=== PATIENT | female | born 1945 | race Caucasian/White ===

== ENCOUNTER 2016-08-08 11:42 | Inpatient (IN) | payer MEDICAID, MEDICARE ==
[~2016-08-08] VITALS: Ht 160 cm; Wt 71.3 kg
[2016-08-08 12:00] VITALS: BP 107/83
[2016-08-08 13:01] LABS: INR 1.1 (0.9-1.1); PROTHROMBIN TIME 11.6 SEC (9.30-11.50)
[2016-08-08 13:03] LABS: ALANINE AMINOTRANSFERASE 50 U/L (3-33); ALBUMIN/GLOBULIN RATIO 1.4 (1.0-2.7); ANION GAP 18 (5-15); ASPARTATE AMINO TRANSFERASE 41 U/L (5-40); CALCIUM 8.9 mg/dL (8.6-10.2); CARBON DIOXIDE 21 mEQ/L (20-30); CHLORIDE 101 mEQ/L (98-107); CREATININE 1.3 mg/dL (0.5-0.9); HEMOLYSIS 13; POTASSIUM 5.1 mEQ/L (3.4-4.9); SODIUM 140 mEQ/L (135-145); TROPONIN I < 0.30 ng/mL (<=0.30)
[2016-08-08] MEDS ORDERED: DIGOXIN0.125 MG/2 ORAL (13:10)
[2016-08-08 13:15] LABS: DIGOXIN < 0.3 ng/mL (0.5-2.0)
[2016-08-08 13:26] LABS: BASOPHILS % (AUTO) 1.5 % (0.0-2.0); EOSINOPHILS % (AUTO) 0.5 % (0.0-3.0); LYMPHOCYTES % (AUTO) 13.7 % (20.0-45.0); MEAN CORPUSCULAR HEMOGLOBIN 29.3 PG (27.0-31.0); MEAN CORPUSCULAR HGB CONC 31.7 G/DL (32.0-36.0); MEAN CORPUSCULAR VOLUME 92 FL (80-99); MEAN PLATELET VOLUME 12.9 FL (6.5-10.1); MONOCYTES % (AUTO) 14.9 % (1.0-10.0); NEUTROPHILS % (AUTO) 69.4 % (45.0-75.0); PLATELET COUNT 131 K/UL (150-450); RED BLOOD COUNT 6.03 M/UL (4.20-5.40); RED CELL DISTRIBUTION WIDTH 15.1 % (11.6-14.8); WHITE BLOOD COUNT 3.8 K/UL (4.8-10.8)
--- NOTE | 2016-08-08 13:32 | Emergency Room Report ---
History of Present Illness General Chief Complaint: Dyspnea/Respdistress Source: Patient Present Illness HPI 71-year-old female presents ED or shortness of breath. Patient denies any shortness of breath. Brother at bedside states that for the last one week patient has been short of breath. Cannot complete her sentences. Shortness of breath after a few steps. Otherlike swelling of swelling around the abdomen. Patient has history of A. fib. States she is on Coumadin and digoxin. Denies any chest pain. Denies any fevers or chills. Denies cough. PMD is Dr. Morse. No other aggravating or relieving factors. Denies any other associated symptom Allergies: Coded Allergies: No Known Allergies (Verified Allergy, Unknown, 03/05/10) Patient History Past Medical History: none Past Surgical History: none Pertinent Family History: none Social History: Denies: alcohol use, drug use, smoking Now: No Immunizations: UTD Reviewed Nursing Documentation: PMH: Agreed, PSxH: Agreed Review of Systems All Other Systems: negative except mentioned in HPI Physical Exam Vital Signs Date Time Temp Pulse Resp B/P Pulse Ox O2 Delivery O2 Flow Rate FiO2 08/08/16 11:50 97.2 116 16 139/98 97 Room Air Sp02 EP Interpretation: reviewed, normal General Appearance: no apparent distress, alert, GCS 15, non-toxic, obese Head: normocephalic Eyes: bilateral eye PERRL, bilateral eye normal inspection ENT: hearing grossly normal, normal pharynx, no angioedema, normal voice Neck: full range of motion, supple/symm/no masses Respiratory: chest non-tender, lungs clear, normal breath sounds, speaking full sentences Cardiovascular #1: regular rate, rhythm, no edema Gastrointestinal: normal bowel sounds, non tender, soft, non-distended, no guarding, no rebound, other - pitting edema lower abdomen Rectal: deferred Genitourinary: no CVA tenderness Musculoskeletal: back normal, swelling - 2+ pitting edema b/l LE Neurologic: alert, oriented x3, responsive, motor strength/tone normal, sensory intact, speech normal Psychiatric: normal inspection Skin: normal inspection Lymphatic: normal inspection Medical Decision Making Diagnostic Impression: Primary Impression: CHF exacerbation Qualified Codes: I50.9 - Heart failure, unspecified Additional Impressions: Dyspnea Qualified Codes: R06.00 - Dyspnea, unspecified ARF (acute renal failure) ER Course Hospital Course 71-year-old female presents ED complaining of shortness of breath, leg swelling Differential diagnoses include: VA/unstable angina, contusion, muscle strain, PTX, rib fracture Clinical course Patient placed on stretcher. on court monitor. After initial history and physical I ordered labs, EKG, chest x-ray labs reviewed- no leukocytosis, hemoglobin/hematocrit stable, creatinine elevated, troponins negative, [place] [id number], Digoxin level subtherapeutic EKG - sinus tachycardia, no acute changes Chest x-ray- intestitial edema, cardiomegaly Digoxin given. Lasix given. case discussed with PMD Dr Morse; he agrees to admission. asked that I admit to Dr Tiwari Case discussed with Dr. Tiwari and he agreed to accept the patient to his service for further care and support I. I feel this is a highly complex case requiring extensive working including EKG/Rhythm strip, Xray/CT/US, Blood/urine lab work, repeat exams while in ED, and administration of strong opiates/narcotics for pain control, admission to hospital or close patient follow up. Diagnosis - CHF exacerbation, acute renal failuere, dyspnea admitted to telemetry in serious condition Labs Test 08/08/16 12:34 08/08/16 13:10 Prothrombin Time 11.6 SEC (9.30-11.50) Prothromb Time International Ratio 1.1 (0.9-1.1) Activated Partial Thromboplast Time 25 SEC (23-33) Sodium Level 140 mEQ/L (135-145) Potassium Level 5.1 mEQ/L (3.4-4.9) Chloride Level 101 mEQ/L (98-107) Carbon Dioxide Level 21 mEQ/L (20-30) Anion Gap 18 (5-15) Blood Urea Nitrogen 29 mg/dL (7-23) Creatinine 1.3 mg/dL (0.5-0.9) Estimat Glomerular Filtration Rate mL/min (>60) Glucose Level 128 mg/dL (74-106) Calcium Level 8.9 mg/dL (8.6-10.2) Total Bilirubin 0.6 mg/dL (0.0-1.2) Aspartate Amino Transf (AST/SGOT) 41 U/L (5-40) Alanine Aminotransferase (ALT/SGPT) 50 U/L (3-33) Alkaline Phosphatase 70 U/L (35-104) Total Creatine Kinase 208 U/L (26-140) Creatine Kinase MB 12.0 ng/mL (< 3.8) Creatine Kinase MB Relative Index 5.7 Troponin I < 0.30 ng/mL (<=0.30) Pro-B-Type Natriuretic Peptide 42634 pg/mL (0-125) Total Protein 6.0 g/dL (6.6-8.7) Albumin 3.5 g/dL (3.5-5.2) Globulin 2.5 g/dL Albumin/Globulin Ratio 1.4 (1.0-2.7) Thyroid Stimulating Hormone (TSH) 6.750 uIU/mL (0.300-4.500) Digoxin Level < 0.3 ng/mL (0.5-2.0) White Blood Count 3.8 K/UL (4.8-10.8) Red Blood Count 6.03 M/UL (4.20-5.40) Hemoglobin 17.6 G/DL (12.0-16.0) Hematocrit 55.7 % (37.0-47.0) Mean Corpuscular Volume 92 FL (80-99) Mean Corpuscular Hemoglobin 29.3 PG (27.0-31.0) Mean Corpuscular Hemoglobin Concent 31.7 G/DL (32.0-36.0) Red Cell Distribution Width 15.1 % (11.6-14.8) Platelet Count 131 K/UL (150-450) Mean Platelet Volume 12.9 FL (6.5-10.1) Neutrophils (%) (Auto) 69.4 % (45.0-75.0) Lymphocytes (%) (Auto) 13.7 % (20.0-45.0) Monocytes (%) (Auto) 14.9 % (1.0-10.0) Eosinophils (%) (Auto) 0.5 % (0.0-3.0) Basophils (%) (Auto) 1.5 % (0.0-2.0) EKG Diagnostic Results Rate: tachycardiac Rhythm: NSR ST Segments: no acute changes ASA given to the pt in ED: No Rhythm Strip Diag. Results EP Interpretation: yes Rhythm: NSR, no PVC's, no ectopy Chest X-Ray Diagnostic Results EP Interpretation: Yes Findings: no pneumothorax, no acute cardiopulmonary disease, other - cardiomegaly. interstitial edema Number of Views: 1 Last Vital Signs Date Time Temp Pulse Resp B/P Pulse Ox O2 Delivery O2 Flow Rate FiO2 08/08/16 12:00 98.3 107 21 107/83 100 Room Air Status: improved Disposition: ADMITTED INPATIENT Condition: Serious Referrals: Marla Morse MD (PCP) RIKY ORTIZ M.D. August 08, 2016 13:32
[2016-08-08] MEDS ORDERED: Digoxin 0.5mg/2ml Inj IVP ONE (13:45)
[2016-08-08 15:11] VITALS: BP 124/86
[2016-08-08] MEDS ORDERED: Miralax 17gm pkt ORAL PRN (15:45)
[2016-08-08] MEDS ORDERED: DuoNeb 0.5-3(2.5)mg/3ml neb HHN PRN (15:45)
[2016-08-08] MEDS ORDERED: Nitroglycerin Subl 0.4mg tab (Bottle Of 25) SL PRN (15:45)
[2016-08-08] MEDS ORDERED: Diltiazem 25mg/5ml IV PRN (15:45)
--- NOTE | 2016-08-08 15:56 | Diagnostic Imaging Report ---
Indication: SOB Technique: One view of the chest Comparison: 06/03/2010 Findings: Body habitus limits evaluation. Patient is rotated to the right. The heart is enlarged. There is a left chest AICD. No definite acute infiltrates, effusions, or congestion. Impression: Limited exam due to body habitus and patient rotation. No definite acute process Cardiomegaly
--- NOTE | 2016-08-08 16:53 | History and Physical ---
History of Present Illness General Date patient seen: August 08, 2016 Reason for Hospitalization: Dyspnea/Respdistress Present Illness HPI 71-year-old female with hx of CAD, ICD, presented to ED with CC of shortness of breath. she annot complete her sentences. She has swelling her legs of swelling. Patient has history of A. fib. and is on Coumadin and digoxin. Denies any chest pain. Denies any fevers or chills. She is admitted for chf and peripheral edema Allergies: Coded Allergies: No Known Allergies (Verified Allergy, Unknown, 03/05/10) Medication History Scheduled Digoxin* (Digoxin*), Unknown Dose ORAL DAILY, (Reported) Patient History Healthcare decision maker Resuscitation status Full Code Advanced Directive on File No Past Medical/Surgical History Past Medical/Surgical History: (1) ICD (implantable cardioverter-defibrillator) in place (2) CAD (coronary artery disease) Review of Systems Respiratory: Reports: shortness of breath Skin: Reports: rash All Other Systems: negative except mentioned in HPI Physical Exam General Appearance: WD/WN Lines, tubes and drains: peripheral HEENT: normocephalic, atraumatic Neck: non-tender, normal alignment Respiratory/Chest: chest wall non-tender, rhonchi - left, rhonchi - right Breasts: no masses Cardiovascular/Chest: normal peripheral pulses, normal rate Abdomen: normal bowel sounds, non tender Extremities: pitting Skin Exam: rash - on feet 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 Last 24 Hour Vital Signs Date Time Temp Pulse Resp B/P Pulse Ox O2 Delivery O2 Flow Rate FiO2 08/08/16 15:11 96.8 107 20 124/86 98 Room Air 108 08/08/16 15:08 107 08/08/16 14:29 105 14 116/79 98 Room Air 08/08/16 14:01 104 08/08/16 12:00 98.3 107 21 107/83 100 Room Air 08/08/16 12:00 107 21 Room Air 08/08/16 11:50 97.2 116 16 139/98 97 Room Air Laboratory Tests Test 08/08/16 12:34 08/08/16 13:10 Prothrombin Time 11.6 SEC (9.30-11.50) H Prothromb Time International Ratio 1.1 (0.9-1.1) Activated Partial Thromboplast Time 25 SEC (23-33) Sodium Level 140 mEQ/L (135-145) Potassium Level 5.1 mEQ/L (3.4-4.9) H Chloride Level 101 mEQ/L (98-107) Carbon Dioxide Level 21 mEQ/L (20-30) Anion Gap 18 (5-15) H Blood Urea Nitrogen 29 mg/dL (7-23) H Creatinine 1.3 mg/dL (0.5-0.9) H Estimat Glomerular Filtration Rate mL/min (>60) Glucose Level 128 mg/dL (74-106) H Calcium Level 8.9 mg/dL (8.6-10.2) Total Bilirubin 0.6 mg/dL (0.0-1.2) Aspartate Amino Transf (AST/SGOT) 41 U/L (5-40) H Alanine Aminotransferase (ALT/SGPT) 50 U/L (3-33) H Alkaline Phosphatase 70 U/L (35-104) Total Creatine Kinase 208 U/L (26-140) H Creatine Kinase MB 12.0 ng/mL (< 3.8) H Creatine Kinase MB Relative Index 5.7 Troponin I < 0.30 ng/mL (<=0.30) Pro-B-Type Natriuretic Peptide 64361 pg/mL (0-125) H Total Protein 6.0 g/dL (6.6-8.7) L Albumin 3.5 g/dL (3.5-5.2) Globulin 2.5 g/dL Albumin/Globulin Ratio 1.4 (1.0-2.7) Thyroid Stimulating Hormone (TSH) 6.750 uIU/mL (0.300-4.500) Digoxin Level < 0.3 ng/mL (0.5-2.0) L White Blood Count 3.8 K/UL (4.8-10.8) L Red Blood Count 6.03 M/UL (4.20-5.40) H Hemoglobin 17.6 G/DL (12.0-16.0) H Hematocrit 55.7 % (37.0-47.0) H Mean Corpuscular Volume 92 FL (80-99) Mean Corpuscular Hemoglobin 29.3 PG (27.0-31.0) Mean Corpuscular Hemoglobin Concent 31.7 G/DL (32.0-36.0) L Red Cell Distribution Width 15.1 % (11.6-14.8) H Platelet Count 131 K/UL (150-450) L Mean Platelet Volume 12.9 FL (6.5-10.1) H Neutrophils (%) (Auto) 69.4 % (45.0-75.0) Lymphocytes (%) (Auto) 13.7 % (20.0-45.0) L Monocytes (%) (Auto) 14.9 % (1.0-10.0) H Eosinophils (%) (Auto) 0.5 % (0.0-3.0) Basophils (%) (Auto) 1.5 % (0.0-2.0) Height (Feet): 5 Height (Inches): 3.00 Weight (Pounds): 200 Medications Current Medications Medications (Trade) Dose Ordered Sig/Lala Route PRN Reason Start Time Stop Time Status Last Admin Dose Admin Acetaminophen (Tylenol) 650 mg Q4H PRN ORAL FEVER 08/08/16 15:45 09/07/16 15:44 Albuterol/ Ipratropium (DuoNeb 0.5-3(2.5)mg/3ml) 3 ml Q4H PRN HHN Shortness of Breath 08/08/16 15:45 08/13/16 15:44 Aspirin (ASA) 162 mg DAILY ORAL 08/09/16 09:00 09/08/16 08:59 Dextrose (Dextrose 50%) STAT PRN IV Hypoglycemia 08/08/16 15:45 09/07/16 15:44 Diltiazem HCl (Cardizem) 10 mg Q1H PRN IV HR > 120 08/08/16 15:45 09/07/16 15:44 Heparin Sodium (Porcine) 5000 units 5,000 units ONCE ONCE IV 08/08/16 16:45 08/08/16 16:46 UNV Heparin Sodium/ Dextrose (Heparin) 500 ml @ 32.658 mls/ hr adjust per protocol IV 08/08/16 16:45 09/07/16 16:44 UNV Nitroglycerin (Ntg) 0.4 mg Q5MIN X 3 DOSES PRN SL Prn Chest Pain 08/08/16 15:45 09/07/16 15:44 Ondansetron HCl (Zofran) 4 mg Q6H PRN IVP Nausea & Vomiting 08/08/16 15:45 09/07/16 15:44 Pantoprazole (Protonix) 40 mg DAILY ORAL 08/09/16 09:00 09/08/16 08:59 Polyethylene Glycol (Miralax) 17 gm DAILYPRN PRN ORAL Constipation 08/08/16 15:45 09/07/16 15:44 Temazepam (Restoril) 15 mg HSPRN PRN ORAL Insomnia 08/08/16 15:45 08/15/16 15:44 Assessment/Plan Problem List: (1) Acute respiratory failure ICD Codes: J96.00 - Acute respiratory failure, unspecified whether with hypoxia or hypercapnia SNOMED: 96680161 (2) Peripheral edema ICD Codes: R60.9 - Edema, unspecified SNOMED: 170029775 (3) Cellulitis ICD Codes: L03.90 - Cellulitis, unspecified SNOMED: 678838038 (4) ICD (implantable cardioverter-defibrillator) in place ICD Codes: Z95.810 - Presence of automatic (implantable) cardiac defibrillator SNOMED: 218240067, 251386285 (5) CAD (coronary artery disease) ICD Codes: I25.10 - Atherosclerotic heart disease of [place] coronary artery without angina pectoris SNOMED: 17147362 Assessment/Plan diuretics echo cardiac evaluation check electrolytes check out ICd device anticoagulation vascular studies of legs SKYLER NOGUERA August 08, 2016 16:53
[2016-08-08 17:17] LABS: TROPONIN I < 0.30 ng/mL (<=0.30)
[2016-08-08] MEDS ORDERED: Heparin 5000 units/ml inj IV ONE (18:00)
[2016-08-08] MEDS ORDERED: Heparin 25,000u/D5W 500ml 500 ML IV SCH (18:01)
[2016-08-08 20:00] VITALS: BP 110/67
--- NOTE | 2016-08-08 20:57 | Cardiology Progress Note ---
Assessment/Plan Assessment/Plan chf acute on chronic systolic dcm hs of icd implantation edema paf polycythemia hx of ivc thrombosis acei and hydralazien intolerances diurtic echo icd interrogation ep evlaution anticoagulation if solely for paf may be ok with noac however not sure if noac indicated with ivc thrombosis duplex of legs arterial and venous [id number] Objective Last 24 Hour Vital Signs Date Time Temp Pulse Resp B/P Pulse Ox O2 Delivery O2 Flow Rate FiO2 08/08/16 20:00 97.4 101 20 110/67 95 Room Air 08/08/16 15:11 96.8 107 20 124/86 98 Room Air 108 08/08/16 15:08 107 08/08/16 14:29 105 14 116/79 98 Room Air 08/08/16 14:01 104 08/08/16 12:00 98.3 107 21 107/83 100 Room Air 08/08/16 12:00 107 21 Room Air 08/08/16 11:50 97.2 116 16 139/98 97 Room Air Laboratory Tests Test 08/08/16 12:34 08/08/16 13:10 08/08/16 16:55 Prothrombin Time 11.6 SEC (9.30-11.50) H Prothromb Time International Ratio 1.1 (0.9-1.1) Activated Partial Thromboplast Time 25 SEC (23-33) 21 SEC (23-33) L Sodium Level 140 mEQ/L (135-145) Potassium Level 5.1 mEQ/L (3.4-4.9) H Chloride Level 101 mEQ/L (98-107) Carbon Dioxide Level 21 mEQ/L (20-30) Anion Gap 18 (5-15) H Blood Urea Nitrogen 29 mg/dL (7-23) H Creatinine 1.3 mg/dL (0.5-0.9) H Estimat Glomerular Filtration Rate mL/min (>60) Glucose Level 128 mg/dL (74-106) H Calcium Level 8.9 mg/dL (8.6-10.2) Total Bilirubin 0.6 mg/dL (0.0-1.2) Aspartate Amino Transf (AST/SGOT) 41 U/L (5-40) H Alanine Aminotransferase (ALT/SGPT) 50 U/L (3-33) H Alkaline Phosphatase 70 U/L (35-104) Total Creatine Kinase 208 U/L (26-140) H Creatine Kinase MB 12.0 ng/mL (< 3.8) H Creatine Kinase MB Relative Index 5.7 Troponin I < 0.30 ng/mL (<=0.30) < 0.30 ng/mL (<=0.30) Pro-B-Type Natriuretic Peptide 09012 pg/mL (0-125) H Total Protein 6.0 g/dL (6.6-8.7) L Albumin 3.5 g/dL (3.5-5.2) Globulin 2.5 g/dL Albumin/Globulin Ratio 1.4 (1.0-2.7) Thyroid Stimulating Hormone (TSH) 6.750 uIU/mL (0.300-4.500) Digoxin Level < 0.3 ng/mL (0.5-2.0) L White Blood Count 3.8 K/UL (4.8-10.8) L Red Blood Count 6.03 M/UL (4.20-5.40) H Hemoglobin 17.6 G/DL (12.0-16.0) H Hematocrit 55.7 % (37.0-47.0) H Mean Corpuscular Volume 92 FL (80-99) Mean Corpuscular Hemoglobin 29.3 PG (27.0-31.0) Mean Corpuscular Hemoglobin Concent 31.7 G/DL (32.0-36.0) L Red Cell Distribution Width 15.1 % (11.6-14.8) H Platelet Count 131 K/UL (150-450) L Mean Platelet Volume 12.9 FL (6.5-10.1) H Neutrophils (%) (Auto) 69.4 % (45.0-75.0) Lymphocytes (%) (Auto) 13.7 % (20.0-45.0) L Monocytes (%) (Auto) 14.9 % (1.0-10.0) H Eosinophils (%) (Auto) 0.5 % (0.0-3.0) Basophils (%) (Auto) 1.5 % (0.0-2.0) SOFYA KEY August 08, 2016 20:57
--- NOTE | 2016-08-08 23:48 | General Progress Note ---
Assessment/Plan Assessment/Plan CHF WITH HIGH BNP iv duuretics A FIB POOR HYGEINE will consider psychiatric consult Subjective Allergies: Coded Allergies: No Known Allergies (Verified Allergy, Unknown, 03/05/10) Subjective patient with lives at home with afib not compliant with meds comes in with CHF Objective Last 24 Hour Vital Signs Date Time Temp Pulse Resp B/P Pulse Ox O2 Delivery O2 Flow Rate FiO2 08/08/16 20:00 97.4 101 20 110/67 95 Room Air 08/08/16 15:11 96.8 107 20 124/86 98 Room Air 108 08/08/16 15:08 107 08/08/16 14:29 105 14 116/79 98 Room Air 08/08/16 14:01 104 08/08/16 12:00 98.3 107 21 107/83 100 Room Air 08/08/16 12:00 107 21 Room Air 08/08/16 11:50 97.2 116 16 139/98 97 Room Air Laboratory Tests 08/08/16 12:34: Prothrombin Time 11.6H, Prothromb Time International Ratio 1.1, Activated Partial Thromboplast Time 25, Sodium Level 140, Potassium Level 5.1H, Chloride Level 101, Carbon Dioxide Level 21, Anion Gap 18H, Blood Urea Nitrogen 29H, Creatinine 1.3H, Estimat Glomerular Filtration Rate , Glucose Level 128H, Calcium Level 8.9, Total Bilirubin 0.6, Aspartate Amino Transf (AST/SGOT) 41H, Alanine Aminotransferase (ALT/SGPT) 50H, Alkaline Phosphatase 70, Total Creatine Kinase 208H, Creatine Kinase MB 12.0H, Creatine Kinase MB Relative Index 5.7, Troponin I < 0.30, Pro-B-Type Natriuretic Peptide 19649E, Total Protein 6.0L, Albumin 3.5, Globulin 2.5, Albumin/Globulin Ratio 1.4, Thyroid Stimulating Hormone (TSH) 6.750H, Digoxin Level < 0.3L 08/08/16 13:10: White Blood Count 3.8L, Red Blood Count 6.03H, Hemoglobin 17.6H, Hematocrit 55.7H, Mean Corpuscular Volume 92, Mean Corpuscular Hemoglobin 29.3, Mean Corpuscular Hemoglobin Concent 31.7L, Red Cell Distribution Width 15.1H, Platelet Count 131L, Mean Platelet Volume 12.9H, Neutrophils (%) (Auto) 69.4, Lymphocytes (%) (Auto) 13.7L, Monocytes (%) (Auto) 14.9H, Eosinophils (%) (Auto ) 0.5, Basophils (%) (Auto) 1.5 08/08/16 16:55: Activated Partial Thromboplast Time 21L, Troponin I < 0.30 Height (Feet): 5 Height (Inches): 3.00 Weight (Pounds): 200 General Appearance: confused, agitated, other Cardiovascular: normal rate, regular rhythm Respiratory/Chest: decreased breath sounds Abdomen: normal bowel sounds Edema: severe edema Marla Morse MD August 08, 2016 23:48
[2016-08-09] VITALS: BP 116/75
[2016-08-09 01:34] LABS: INR 1.2 (0.9-1.1); PROTHROMBIN TIME 12.2 SEC (9.30-11.50)
[2016-08-09 01:51] LABS: PARTIAL THROMBOPLASTIN TIME > 150 SEC (23-33)
[2016-08-09] MEDS ORDERED: Heparin 25,000u/D5W 500ml 500 ML IV SCH ×2 (03:00→21:20)
[2016-08-09 04:00] VITALS: BP 108/62
--- NOTE | 2016-08-09 06:00 | Consultation ---
DATE OF CONSULTATION: 08/08/2016 CARDIOLOGY CONSULTATION REFERRING PHYSICIAN: Hallie Tiwari M.D. REASON FOR REFERRAL: Congestive heart failure. HISTORY OF PRESENT ILLNESS: This is an elderly female, who has been admitted to [facility] because of shortness of breath on walking a few steps. She really does not have any chest pain and uses two pillows. There is no orthopnea and she has some occasional dizziness and lightheadedness. She has mainly palpitations. She is nervous. She came into the hospital because of increasing leg swelling and because of increasing shortness of breath. She is rather a poor historian. Information is obtained from review of the chart at [facility]. She has been evaluated by Dr. Quinonez on prior occasions, and he says from 2010, she has had a cardiomyopathy, ejection fraction 25%, felt to be nonischemic in origin and status post cardiac arrest and intracardiac defibrillator placement by Willard's device, history of thrombophlebitis status post IVC filter placement and chronic pancytopenia, anemia, congestive heart failure, supraventricular tachycardia, and anxiety disorder. ALLERGIES: She says she is not allergic to any medications. SOCIAL HISTORY: She used to smoke, which she quit when she had the pacemaker implanted. No history of drug use. She does have a history of alcohol intake on prior occasions as well. REVIEW OF SYSTEMS: Gastrointestinal: She denies any nausea, vomiting, diarrhea or constipation. No bloody stools or black tarry. Genitourinary: She denies any discomfort on urination. Pulmonary: Denies any coughing or wheezing. Constitutional: She denies any fevers chills or night sweats. PHYSICAL EXAMINATION: GENERAL: The patient is an unkempt elderly female, in no respiratory distress. NECK: Supple. LUNGS: Appear to be rather clear to auscultation. CARDIAC: Regular rate and rhythm. No heaves or thrills noted. ABDOMEN: Abdomen is obese. Positive bowel sounds. Nontender. EXTREMITIES: There is no clubbing or cyanosis. She has a 2 to 3+ pitting edema of lower extremities all the way up to the thighs. NEUROLOGICAL: She is alert and awake. LABORATORY AND DIAGNOSTIC DATA: White count 3.2 with hemoglobin 17.6 up from 10.8 in 2011 and platelet count of 131,000 up from 56,000. Chemistry panel, sodium 140, potassium 5.1, chloride 101, bicarbonate 21, BUN of 29, creatinine 1.3 and glucose of 126. Two sets of cardiac enzymes are negative. ProBNP is 18,000 and CK of 200. TSH of 6.75 and previous B12 level of 284 back in 2010. Digoxin level less than 0.3. Her INR was 1.1 at time of admission and PTT of 25. An EKG shows normal sinus rhythm with leftward axis, with delayed R wave progression, may be related to body habitus and/or displacement. Telemetry showed sinus rhythm. X-rays, chest x-ray shows limited evaluation due to body habitus, the right heart is enlarged and left-sided intracardiac defibrillator is noted. ASSESSMENT AND PLAN: 1. Peripheral edema. 2. Cardiomyopathy. 3. Possible right heart failure. 4. Polycythemia. 5. Paroxysmal episodes of atrial fibrillation. 6. Intracardiac defibrillator placement. Dr. Tiwari, this patient was seen in cardiac consultation. This patient has been previously evaluated and seen by Dr. Quinonez. My hope is that the patient will be seen by him to evaluate intracardiac defibrillator function and see if atrial fibrillation episodes if any. Her prior to admission medications were limited and includes at least list provided is only digoxin. She has been on a combination of Coreg, digoxin, Aldactone and Coumadin and reports she has been off of DASIA inhibitor secondary to prior intolerances, as per Dr. Quinonez's notes previously. Diuretics will be provided intravenously as well with resolution of edema and some of the heart failure symptoms and the patient's blood pressure has been functioning well. The etiology of polycythemia to be determined. Raul Kent M.D. DR: BUTCH JOB#: [id number] CC:
[2016-08-09 08:00] VITALS: BP 112/69
[2016-08-09 08:04] LABS: MEAN CORPUSCULAR HEMOGLOBIN 29.8 PG (27.0-31.0); MEAN CORPUSCULAR HGB CONC 32.1 G/DL (32.0-36.0); MEAN CORPUSCULAR VOLUME 93 FL (80-99); MEAN PLATELET VOLUME 14.4 FL (6.5-10.1); PLATELET COUNT 106 K/UL (150-450); RED BLOOD COUNT 5.14 M/UL (4.20-5.40); RED CELL DISTRIBUTION WIDTH 14.9 % (11.6-14.8); WHITE BLOOD COUNT 3.1 K/UL (4.8-10.8)
[2016-08-09 08:37] LABS: ALANINE AMINOTRANSFERASE 47 U/L (3-33); ALBUMIN/GLOBULIN RATIO 1.4 (1.0-2.7); ANION GAP 16 (5-15); ASPARTATE AMINO TRANSFERASE 40 U/L (5-40); CALCIUM 8.5 mg/dL (8.6-10.2); CARBON DIOXIDE 28 mEQ/L (20-30); CHLORIDE 99 mEQ/L (98-107); CHOLESTEROL 195 mg/dL (< 200); CREATININE 1.2 mg/dL (0.5-0.9); CRP QUANT 0.8 mg/dL (< 0.5); HEMOLYSIS 12; LDL CHOLESTEROL (CALC.) 116 mg/dL (60-99); POTASSIUM 3.9 mEQ/L (3.4-4.9); SODIUM 143 mEQ/L (135-145); TOTAL PROTEIN 5.6 g/dL (6.6-8.7)
[2016-08-09 09:03] LABS: TROPONIN I < 0.30 ng/mL (<=0.30)
[2016-08-09] MEDS: Aspirin Baby 81mg ORAL SCH (09:10)
[2016-08-09 09:12] LABS: ANISOCYTOSIS 1+; BAND NEUTROPHILS % (MANUAL) 0 % (0-8); BASOPHILS % (MANUAL) 0 % (0-2); EOSINOPHILS % (MANUAL) 0 % (0-3); LYMPHOCYTES % (MANUAL) 27 % (20-45); NEUTROPHILS % (MANUAL) 66 % (45-75); PLATELET ESTIMATE DECREASED; PLATELET MORPHOLOGY NORMAL; TOTAL CELLS COUNTED 100
[2016-08-09 12:00] VITALS: BP 111/72
[2016-08-09] MEDS: Heparin 25,000u/D5W 500ml 500 ML IV SCH ×2 (12:28→16:04)
--- NOTE | 2016-08-09 12:48 | Pulmonology Progress Note ---
Assessment/Plan Problems: (1) Acute respiratory failure (2) Peripheral edema (3) Cellulitis (4) ICD (implantable cardioverter-defibrillator) in place (5) CAD (coronary artery disease) Assessment/Plan IV antibiotic diuretics psych and neuro evaluation social service evaluation for home safety evaluation Subjective ROS Limited/Unobtainable: No Interval Events: feeling better Constitutional: Reports: no symptoms HEENT: Repors: no symptoms Allergies: Coded Allergies: No Known Allergies (Verified Allergy, Unknown, 03/05/10) Objective Last 24 Hour Vital Signs Date Time Temp Pulse Resp B/P Pulse Ox O2 Delivery O2 Flow Rate FiO2 08/09/16 12:00 98.5 78 18 111/72 98 Room Air 08/09/16 08:00 98.0 74 18 112/69 94 Room Air 08/09/16 04:00 86 08/09/16 04:00 97.8 79 22 108/62 95 Room Air 08/09/16 00:00 97.6 101 20 116/75 96 Room Air 08/09/16 00:00 98 08/08/16 20:00 97.4 101 20 110/67 95 Room Air 08/08/16 20:00 98 08/08/16 15:11 96.8 107 20 124/86 98 Room Air 108 08/08/16 15:08 107 08/08/16 14:29 105 14 116/79 98 Room Air 08/08/16 14:01 104 Intake and Output 08/08/16 08/09/16 19:00 07:00 Intake Total 250 ml Balance 250 ml Intake Oral 250 ml # Voids 1 1 General Appearance: WD/WN HEENT: normocephalic, atraumatic Respiratory/Chest: chest wall non-tender, lungs clear Breasts: no masses Cardiovascular: normal peripheral pulses Abdomen: normal bowel sounds Genitourinary: normal external genitalia Skin: no rash, rash Neurologic/Psychiatric: system operator II-XII grossly normal Laboratory Tests 08/08/16 13:10: White Blood Count 3.8L, Red Blood Count 6.03H, Hemoglobin 17.6H, Hematocrit 55.7H, Mean Corpuscular Volume 92, Mean Corpuscular Hemoglobin 29.3, Mean Corpuscular Hemoglobin Concent 31.7L, Red Cell Distribution Width 15.1H, Platelet Count 131L, Mean Platelet Volume 12.9H, Neutrophils (%) (Auto) 69.4, Lymphocytes (%) (Auto) 13.7L, Monocytes (%) (Auto) 14.9H, Eosinophils (%) (Auto ) 0.5, Basophils (%) (Auto) 1.5 08/08/16 16:55: Activated Partial Thromboplast Time 21L, Troponin I < 0.30 08/09/16 00:35: Activated Partial Thromboplast Time > 150*H, Prothrombin Time 12.2H, Prothromb Time International Ratio 1.2H 08/09/16 07:25: White Blood Count 3.1L, Red Blood Count 5.14, Hemoglobin 15.3, Hematocrit 47.7H , Mean Corpuscular Volume 93, Mean Corpuscular Hemoglobin 29.8, Mean Corpuscular Hemoglobin Concent 32.1, Red Cell Distribution Width 14.9H, Platelet Count 106L, Mean Platelet Volume 14.4H, Neutrophils (%) (Auto) , Lymphocytes (%) (Auto) , Monocytes (%) (Auto) , Eosinophils (%) (Auto) , Basophils (%) (Auto) , Troponin I < 0.30, Differential Total Cells Counted 100, Neutrophils % (Manual) 66, Lymphocytes % (Manual) 27, Monocytes % (Manual) 7, Eosinophils % (Manual) 0, Basophils % (Manual) 0, Band Neutrophils 0, Platelet Estimate DecreasedL, Platelet Morphology Normal, Anisocytosis 1+, Sodium Level 143, Potassium Level 3.9, Chloride Level 99, Carbon Dioxide Level 28, Anion Gap 16H, Blood Urea Nitrogen 28H, Creatinine 1.2H, Estimat Glomerular Filtration Rate , Glucose Level 68L, Calcium Level 8.5L, Total Bilirubin 0.6, Aspartate Amino Transf (AST/SGOT) 40, Alanine Aminotransferase (ALT/SGPT) 47H, Alkaline Phosphatase 68, C-Reactive Protein, Quantitative 0.8H, Total Protein 5.6L, Albumin 3.3L, Globulin 2.3, Albumin/Globulin Ratio 1.4, Triglycerides Level 77, Cholesterol Level 195, LDL Cholesterol 116H, HDL Cholesterol 64H, Cholesterol/ HDL Ratio 3.0L 08/09/16 09:40: Activated Partial Thromboplast Time 133H Current Medications Medications (Trade) Dose Ordered Sig/Lala Route PRN Reason Start Time Stop Time Status Last Admin Dose Admin Acetaminophen (Tylenol) 650 mg Q4H PRN ORAL FEVER 08/08/16 15:45 09/07/16 15:44 Albuterol/ Ipratropium (DuoNeb 0.5-3(2.5)mg/3ml) 3 ml Q4H PRN HHN Shortness of Breath 08/08/16 15:45 08/13/16 15:44 Aspirin (ASA) 162 mg DAILY ORAL 08/09/16 09:00 09/08/16 08:59 08/09/16 09:10 Dextrose (Dextrose 50%) STAT PRN IV Hypoglycemia 08/08/16 15:45 09/07/16 15:44 Diltiazem HCl (Cardizem) 10 mg Q1H PRN IV HR > 120 08/08/16 15:45 09/07/16 15:44 Furosemide 20 mg 20 mg EVERY 12 HOURS IV 08/08/16 21:30 09/07/16 21:29 08/09/16 09:10 Heparin Sodium/ Dextrose (Heparin) 500 ml @ 17.365 mls/ hr adjust per protocol IV 08/09/16 12:00 09/08/16 11:59 08/09/16 12:28 Nitroglycerin (Ntg) 0.4 mg Q5MIN X 3 DOSES PRN SL Prn Chest Pain 08/08/16 15:45 09/07/16 15:44 Ondansetron HCl (Zofran) 4 mg Q6H PRN IVP Nausea & Vomiting 08/08/16 15:45 09/07/16 15:44 Pantoprazole (Protonix) 40 mg DAILY ORAL 08/09/16 09:00 09/08/16 08:59 08/09/16 09:10 Polyethylene Glycol (Miralax) 17 gm DAILYPRN PRN ORAL Constipation 08/08/16 15:45 09/07/16 15:44 Temazepam (Restoril) 15 mg HSPRN PRN ORAL Insomnia 08/08/16 15:45 08/15/16 15:44 SKYLER NOGUERA Aug 09, 2016 12:48
--- NOTE | 2016-08-09 14:27 | Neurology Progress Note ---
Interim History Interim History ROS Limited/Unobtainable: No Objective Physical Exam Last Vital Signs Date Time Temp Pulse Resp B/P Pulse Ox O2 Delivery O2 Flow Rate FiO2 08/09/16 12:00 98.5 78 18 111/72 98 Room Air Laboratory Tests Test 08/08/16 16:55 08/09/16 00:35 08/09/16 07:25 08/09/16 09:40 Activated Partial Thromboplast Time 21 SEC (23-33) L > 150 SEC (23-33) *H 133 SEC (23-33) H Troponin I < 0.30 ng/mL (<=0.30) < 0.30 ng/mL (<=0.30) Prothrombin Time 12.2 SEC (9.30-11.50) H Prothromb Time International Ratio 1.2 (0.9-1.1) H White Blood Count 3.1 K/UL (4.8-10.8) L Red Blood Count 5.14 M/UL (4.20-5.40) Hemoglobin 15.3 G/DL (12.0-16.0) Hematocrit 47.7 % (37.0-47.0) H Mean Corpuscular Volume 93 FL (80-99) Mean Corpuscular Hemoglobin 29.8 PG (27.0-31.0) Mean Corpuscular Hemoglobin Concent 32.1 G/DL (32.0-36.0) Red Cell Distribution Width 14.9 % (11.6-14.8) H Platelet Count 106 K/UL (150-450) L Mean Platelet Volume 14.4 FL (6.5-10.1) H Neutrophils (%) (Auto) % (45.0-75.0) Lymphocytes (%) (Auto) % (20.0-45.0) Monocytes (%) (Auto) % (1.0-10.0) Eosinophils (%) (Auto) % (0.0-3.0) Basophils (%) (Auto) % (0.0-2.0) Differential Total Cells Counted 100 Neutrophils % (Manual) 66 % (45-75) Lymphocytes % (Manual) 27 % (20-45) Monocytes % (Manual) 7 % (1-10) Eosinophils % (Manual) 0 % (0-3) Basophils % (Manual) 0 % (0-2) Band Neutrophils 0 % (0-8) Platelet Estimate Decreased L Platelet Morphology Normal Anisocytosis 1+ Sodium Level 143 mEQ/L (135-145) Potassium Level 3.9 mEQ/L (3.4-4.9) Chloride Level 99 mEQ/L (98-107) Carbon Dioxide Level 28 mEQ/L (20-30) Anion Gap 16 (5-15) H Blood Urea Nitrogen 28 mg/dL (7-23) H Creatinine 1.2 mg/dL (0.5-0.9) H Estimat Glomerular Filtration Rate mL/min (>60) Glucose Level 68 mg/dL (74-106) L Calcium Level 8.5 mg/dL (8.6-10.2) L Total Bilirubin 0.6 mg/dL (0.0-1.2) Aspartate Amino Transf (AST/SGOT) 40 U/L (5-40) Alanine Aminotransferase (ALT/SGPT) 47 U/L (3-33) H Alkaline Phosphatase 68 U/L (35-104) C-Reactive Protein, Quantitative 0.8 mg/dL (< 0.5) H Total Protein 5.6 g/dL (6.6-8.7) L Albumin 3.3 g/dL (3.5-5.2) L Globulin 2.3 g/dL Albumin/Globulin Ratio 1.4 (1.0-2.7) Triglycerides Level 77 mg/dL (< 150) Cholesterol Level 195 mg/dL (< 200) LDL Cholesterol 116 mg/dL (60-99) H HDL Cholesterol 64 mg/dL (> 60) H Cholesterol/HDL Ratio 3.0 (3.3-4.4) L Impression/Recommendations Problems: (1) Mild cognitive impairment with memory loss (2) r/o bypolar disorder (3) Morbid obesity (4) Cellulitis (5) Peripheral edema (6) ICD (implantable cardioverter-defibrillator) in place (7) CHF exacerbation Status: unchanged Recommendations #[id number] labs ct brain psych eval placement. GREAT CHEUNG Aug 09, 2016 14:27
[2016-08-09 16:00] VITALS: BP 125/75
[2016-08-09] MEDS: ceFAZolin sod 0.5 GM in D5W 55 ML IV SCH ×2 (16:05→21:15)
--- NOTE | 2016-08-09 16:09 | Cardiac Electrophysiology PN ---
Subjective Subjective [id number] My office patient for many years. Had appointment just last week. Will reinterrogated the [place] ICD and check for atrial fib burden.Increase Lasix to 40 iv bid and anticoagulate Objective Last 24 Hour Vital Signs Date Time Temp Pulse Resp B/P Pulse Ox O2 Delivery O2 Flow Rate FiO2 08/09/16 12:00 98.5 78 18 111/72 98 Room Air 08/09/16 12:00 93 08/09/16 08:00 98.0 74 18 112/69 94 Room Air 08/09/16 08:00 107 08/09/16 04:00 86 08/09/16 04:00 97.8 79 22 108/62 95 Room Air 08/09/16 00:00 97.6 101 20 116/75 96 Room Air 08/09/16 00:00 98 08/08/16 20:00 97.4 101 20 110/67 95 Room Air 08/08/16 20:00 98 Intake and Output 08/08/16 08/09/16 19:00 07:00 Intake Total 250 ml Balance 250 ml Intake Oral 250 ml # Voids 1 1 Laboratory Tests Test 08/08/16 16:55 08/09/16 00:35 08/09/16 07:25 08/09/16 09:40 Activated Partial Thromboplast Time 21 SEC (23-33) L > 150 SEC (23-33) *H 133 SEC (23-33) H Troponin I < 0.30 ng/mL (<=0.30) < 0.30 ng/mL (<=0.30) Prothrombin Time 12.2 SEC (9.30-11.50) H Prothromb Time International Ratio 1.2 (0.9-1.1) H White Blood Count 3.1 K/UL (4.8-10.8) L Red Blood Count 5.14 M/UL (4.20-5.40) Hemoglobin 15.3 G/DL (12.0-16.0) Hematocrit 47.7 % (37.0-47.0) H Mean Corpuscular Volume 93 FL (80-99) Mean Corpuscular Hemoglobin 29.8 PG (27.0-31.0) Mean Corpuscular Hemoglobin Concent 32.1 G/DL (32.0-36.0) Red Cell Distribution Width 14.9 % (11.6-14.8) H Platelet Count 106 K/UL (150-450) L Mean Platelet Volume 14.4 FL (6.5-10.1) H Neutrophils (%) (Auto) % (45.0-75.0) Lymphocytes (%) (Auto) % (20.0-45.0) Monocytes (%) (Auto) % (1.0-10.0) Eosinophils (%) (Auto) % (0.0-3.0) Basophils (%) (Auto) % (0.0-2.0) Differential Total Cells Counted 100 Neutrophils % (Manual) 66 % (45-75) Lymphocytes % (Manual) 27 % (20-45) Monocytes % (Manual) 7 % (1-10) Eosinophils % (Manual) 0 % (0-3) Basophils % (Manual) 0 % (0-2) Band Neutrophils 0 % (0-8) Platelet Estimate Decreased L Platelet Morphology Normal Anisocytosis 1+ Sodium Level 143 mEQ/L (135-145) Potassium Level 3.9 mEQ/L (3.4-4.9) Chloride Level 99 mEQ/L (98-107) Carbon Dioxide Level 28 mEQ/L (20-30) Anion Gap 16 (5-15) H Blood Urea Nitrogen 28 mg/dL (7-23) H Creatinine 1.2 mg/dL (0.5-0.9) H Estimat Glomerular Filtration Rate mL/min (>60) Glucose Level 68 mg/dL (74-106) L Calcium Level 8.5 mg/dL (8.6-10.2) L Total Bilirubin 0.6 mg/dL (0.0-1.2) Aspartate Amino Transf (AST/SGOT) 40 U/L (5-40) Alanine Aminotransferase (ALT/SGPT) 47 U/L (3-33) H Alkaline Phosphatase 68 U/L (35-104) C-Reactive Protein, Quantitative 0.8 mg/dL (< 0.5) H Total Protein 5.6 g/dL (6.6-8.7) L Albumin 3.3 g/dL (3.5-5.2) L Globulin 2.3 g/dL Albumin/Globulin Ratio 1.4 (1.0-2.7) Triglycerides Level 77 mg/dL (< 150) Cholesterol Level 195 mg/dL (< 200) LDL Cholesterol 116 mg/dL (60-99) H HDL Cholesterol 64 mg/dL (> 60) H Cholesterol/HDL Ratio 3.0 (3.3-4.4) HANSEL BERMAN Aug 09, 2016 16:09
[2016-08-09] MEDS ORDERED: Warfarin Sodium 5mg ORAL ONE (18:00)
--- NOTE | 2016-08-09 18:10 | Consultation ---
Consult Note Consult Note PODIATRY CONSULTATION CONSULTING PHYSICIAN: Emmett Blue DPM COVERING FOR: Jarocho Knight DPM DATE: REASON FOR CONSULT: Bilateral lower extremity cellulitis HISTORY OF PRESENT ILLNESS: Patient states approximately one week history of increasing edema and redness of bilateral lower extremities. Patient states that the foot has also been itching. No pain, nausea, vomiting, fevers, or chills reported. Patient was admitted due to difficulty breathing. ALLERGIES: No known CURRENT ANTIBIOTICS: Cefepime PAST MEDICAL HISTORY: CHF, CAD SOCIAL HISTORY: Patient does not currently smoke but has a history of smoking. Drinks occasionally. No illicit drug use. Patient lives with her brother SURGICAL HISTORY: Implantable cardioverter defibrillator FAMILY HISTORY: No pertinent findings Last 24 Hour Vital Signs Date Time Temp Pulse Resp B/P Pulse Ox O2 Delivery O2 Flow Rate FiO2 08/09/16 16:00 98.0 68 18 125/75 97 Room Air 08/09/16 12:00 98.5 78 18 111/72 98 Room Air 08/09/16 12:00 93 08/09/16 08:00 98.0 74 18 112/69 94 Room Air 08/09/16 08:00 107 08/09/16 04:00 86 08/09/16 04:00 97.8 79 22 108/62 95 Room Air 08/09/16 00:00 97.6 101 20 116/75 96 Room Air 08/09/16 00:00 98 08/08/16 20:00 97.4 101 20 110/67 95 Room Air 08/08/16 20:00 98 Laboratory Tests Test 08/09/16 00:35 08/09/16 07:25 08/09/16 09:40 Prothrombin Time 12.2 SEC (9.30-11.50) H Prothromb Time International Ratio 1.2 (0.9-1.1) H Activated Partial Thromboplast Time > 150 SEC (23-33) *H 133 SEC (23-33) H White Blood Count 3.1 K/UL (4.8-10.8) L Red Blood Count 5.14 M/UL (4.20-5.40) Hemoglobin 15.3 G/DL (12.0-16.0) Hematocrit 47.7 % (37.0-47.0) H Mean Corpuscular Volume 93 FL (80-99) Mean Corpuscular Hemoglobin 29.8 PG (27.0-31.0) Mean Corpuscular Hemoglobin Concent 32.1 G/DL (32.0-36.0) Red Cell Distribution Width 14.9 % (11.6-14.8) H Platelet Count 106 K/UL (150-450) L Mean Platelet Volume 14.4 FL (6.5-10.1) H Neutrophils (%) (Auto) % (45.0-75.0) Lymphocytes (%) (Auto) % (20.0-45.0) Monocytes (%) (Auto) % (1.0-10.0) Eosinophils (%) (Auto) % (0.0-3.0) Basophils (%) (Auto) % (0.0-2.0) Differential Total Cells Counted 100 Neutrophils % (Manual) 66 % (45-75) Lymphocytes % (Manual) 27 % (20-45) Monocytes % (Manual) 7 % (1-10) Eosinophils % (Manual) 0 % (0-3) Basophils % (Manual) 0 % (0-2) Band Neutrophils 0 % (0-8) Platelet Estimate Decreased L Platelet Morphology Normal Anisocytosis 1+ Sodium Level 143 mEQ/L (135-145) Potassium Level 3.9 mEQ/L (3.4-4.9) Chloride Level 99 mEQ/L (98-107) Carbon Dioxide Level 28 mEQ/L (20-30) Anion Gap 16 (5-15) H Blood Urea Nitrogen 28 mg/dL (7-23) H Creatinine 1.2 mg/dL (0.5-0.9) H Estimat Glomerular Filtration Rate mL/min (>60) Glucose Level 68 mg/dL (74-106) L Calcium Level 8.5 mg/dL (8.6-10.2) L Total Bilirubin 0.6 mg/dL (0.0-1.2) Aspartate Amino Transf (AST/SGOT) 40 U/L (5-40) Alanine Aminotransferase (ALT/SGPT) 47 U/L (3-33) H Alkaline Phosphatase 68 U/L (35-104) Troponin I < 0.30 ng/mL (<=0.30) C-Reactive Protein, Quantitative 0.8 mg/dL (< 0.5) H Total Protein 5.6 g/dL (6.6-8.7) L Albumin 3.3 g/dL (3.5-5.2) L Globulin 2.3 g/dL Albumin/Globulin Ratio 1.4 (1.0-2.7) Triglycerides Level 77 mg/dL (< 150) Cholesterol Level 195 mg/dL (< 200) LDL Cholesterol 116 mg/dL (60-99) H HDL Cholesterol 64 mg/dL (> 60) H Cholesterol/HDL Ratio 3.0 (3.3-4.4) L PHYSICAL EXAM: DERM: Blisters at bilateral foot at the dorsal 1st proximal interdigital space and the anterior ankle. Surrounding erythema and edema present. Mild pain with palpation surrounding the blisters. Patient also has a small blister at the dorsal left foot. Hyperkeratosis noted at the right plantar 4th metatarsal head. Thick, discolored, and elongated toenails x 10. Poor pedal hygiene bilaterally NEURO: Sensation in tact to light touch VASC: Bilateral foot and lower leg with pitting edema MSK: Muscle strength appropriate for age . Assessment/Plan Assessment: - Bilateral foot blisters - Bilateral lower extremity cellulitis - Bilateral lower extremity edema - Elongated mycotic toenails - Callus sub right foot 4th metatarsal head - Poor pedal hygiene Plan: - The patient was consented and a bedside I&D was performed and the blisters were lanced. The contents appeared serous and were sent for aerobic and anaerobic cultures - The blisters were painted with betadine. Continue to paint the areas with betadine daily and keep open to air. However, if drainage increased will start daily dressing changes - Vascular studies, venous and arterial doppler, of bilateral lower extremities are complete. Follow up results - Will debride toenails and callus - Continue cephalexin for now - Discussed with patient that the symmetrical presentation of the blisters is likely related to inappropriate shoe gear and that she should discontinue using shoes that resulting in friction in the areas of blister formation Emmett Blue DPM Aug 09, 2016 18:10
--- NOTE | 2016-08-09 18:30 | Consultation ---
DATE OF CONSULTATION: 08/09/2016 NEUROLOGICAL CONSULTATION CONSULTING PHYSICIAN: Austin Chapa M.D. ATTENDING PHYSICIAN: Marla Morse M.D. REQUESTING PHYSICIAN: Hallie Tiwari M.D. HISTORY OF PRESENT ILLNESS: This is a 71-year-old, who was brought to this hospital when her family noted that she developed the shortness of breath on exertion, actually with walking only few steps. The patient presented with elevated mood and insisted that she has no discomfort or medical issues. On admission, she was acknowledging presence of swelling in her both lower extremities. The patient is recently diagnosed with DVT and placed on Coumadin. She had IVC filter placed. Following current admission, vital signs remained stable, although heart rate was 116. Her imaging studies, chest x-ray, cardiomegaly and left chest AICD. Lab work with CBC presenting with low WBCs 3.8, elevated RBC 6.03, hemoglobin 17, hematocrit 55.7, and platelets 131,000. Coagulation panel, PT of 11.6 and INR 1.1. The patient was started on heparin drip and PTT elevated at 150 and INR 1.2. Chemistry panel on admission included BUN of 29, creatinine 1.3, potassium 5.1. Elevated AST and ALT. CPK 208 with a CK-MB of 12.0 and BNP of 18,803. Toxicology panel unremarkable. She has elevated TSH 6.750 and LDL of 116. Since admission till present, there were no paroxysmal events. She remained essentially stable. PAST MEDICAL HISTORY: The patient has a history of morbid obesity, history of a pacemaker in place, thrombophlebitis, status post IVC filter placement, history of chronic anemia, pancytopenia, history of congestive heart failure, episodes of supraventricular tachycardia, cardiomyopathy with previous ejection fraction 25%. The patient has a history of emotional lability and anxiety disorder. MEDICATIONS: Her treatment prior to admission included digoxin. Currently, she is on IV heparin drip, aspirin, Cardizem, Lasix, albuterol, nitroglycerin, Zofran, Protonix, MiraLAX, and temazepam. ALLERGIES: None reported. SOCIAL HISTORY: Lives at home with her brother. Previously, heavy smoker and has a history of alcohol abuse. REVIEW OF SYSTEMS: She denies having headache or dizziness. Denies chest pain. No shortness of breath. No abdominal pain or discomfort. No urine or bowel incontinence, but she has a swelling to her lower extremities, and limited ambulation. Admits occasional depression. PHYSICAL EXAMINATION: GENERAL: This is a well-developed, but morbidly obese, deconditioned appearing female, lying on the right side watching TV. The patient was insisting on assuming only right body position stating that this is more comfortable. VITAL SIGNS: Stable. Blood pressure 111/72, heart rate is 78, and temperature 98.1 degrees. HEENT: Head, normocephalic. No evidence of injuries. Eyes, ears, and throat are clear. NECK: Supple. No meningeal signs. MUSCULOSKELETAL EXAMINATION: Remarkable for significant 3+ swelling and redness of both lower extremities below knees. Peripheral pulses of both upper extremities is normal. Unable to palpate both dorsal pedis pulses. The pacemaker in place in chest. MENTAL STATUS: She is alert and oriented to her name, age, place, year, and month. She was able to provide with history although she is quite forgetful, but speech is fluent and she is talkative. At times, appears to be in rapid responses with frequent jokes, but she is emotionally labile, and mood elevated. She has a poor insight, able to follow commands, she was able to recall the current president of [facility], but unable to recall previous two, going back to [place]. She was unable to recall any of 3 words in 3 minutes. There was no perceptional thought abnormalities detected. CRANIAL NERVE II: Pupils both responding to light and accommodation. Extraocular movement intact. No nystagmus. CRANIAL NERVE V: Normal corneal responses. CRANIAL NERVE VII: No facial asymmetry. CRANIAL NERVE VIII: Grossly normal hearing. CRANIAL NERVES IX THROUGH XII: Tongue is in midline. The patient has a poor dentition. MOTOR EXAMINATION: Able to lift arms against the gravity. Strength 5/5. Able to lift both lower extremities against the gravity, but briefly. Deep tendon reflexes depressed bilaterally biceps, triceps, brachioradialis, knee and ankle jerks. Plantar response is mute. SENSORY EXAMINATION: Withdrawing to pin stimulation in both upper and lower extremities. CRANIAL NERVE VIII: Unable to test distal aspect of both lower extremities due to significant swelling. Gait not tested. IMPRESSION: 1. This is a 71-year-old female with multiple stroke risk factors, presenting with a mild cognitive impairment and manic affect. Rule out bipolar disorder, rule out vascular dementia. 2. Morbid obesity. 3. Renal insufficiency. 4. Congestive heart failure. 5. Cellulitis of both lower extremities. 6. Internal cardioverter-defibrillator in place. RECOMMENDATION: 1. The patient to recheck thyroid function, B12, and folate. Check vitamin D and vitamin C levels. Recheck CEA and glycated hemoglobin. 2. Baseline CT of the brain. 3. Psychiatry evaluation regarding abnormal affect. 4. Continue with IV fluids and antibiotics to cover underlying infection. Discussed the patient's status with medical staff. Austin Chapa M.D. DR: MARTHA JOB#: [id number] CC:
--- NOTE | 2016-08-09 19:05 | General Progress Note ---
Assessment/Plan Assessment/Plan CHF WITH HIGH BNP iv duuretics A FIB POOR HYGEINE will consider psychiatric consult bipolar vs paranoid schizophrenia iv abtx ck ua cs Subjective Allergies: Coded Allergies: No Known Allergies (Verified Allergy, Unknown, 03/05/10) Subjective 08/08/2016 patient with lives at home with afib not compliant with meds comes in with CHF 08/09/2016 she is more alert and follows commands .responds more appropiately Objective Last 24 Hour Vital Signs Date Time Temp Pulse Resp B/P Pulse Ox O2 Delivery O2 Flow Rate FiO2 08/09/16 16:00 99 08/09/16 16:00 98.0 68 18 125/75 97 Room Air 08/09/16 12:00 98.5 78 18 111/72 98 Room Air 08/09/16 12:00 93 08/09/16 08:00 98.0 74 18 112/69 94 Room Air 08/09/16 08:00 107 08/09/16 04:00 86 08/09/16 04:00 97.8 79 22 108/62 95 Room Air 08/09/16 00:00 97.6 101 20 116/75 96 Room Air 08/09/16 00:00 98 08/08/16 20:00 97.4 101 20 110/67 95 Room Air 08/08/16 20:00 98 Intake and Output 08/08/16 08/09/16 19:00 07:00 Intake Total 250 ml Balance 250 ml Intake Oral 250 ml # Voids 1 1 Laboratory Tests 08/09/16 00:35: Prothrombin Time 12.2H, Prothromb Time International Ratio 1.2H, Activated Partial Thromboplast Time > 150*H 08/09/16 07:25: White Blood Count 3.1L, Red Blood Count 5.14, Hemoglobin 15.3, Hematocrit 47.7H , Mean Corpuscular Volume 93, Mean Corpuscular Hemoglobin 29.8, Mean Corpuscular Hemoglobin Concent 32.1, Red Cell Distribution Width 14.9H, Platelet Count 106L, Mean Platelet Volume 14.4H, Neutrophils (%) (Auto) , Lymphocytes (%) (Auto) , Monocytes (%) (Auto) , Eosinophils (%) (Auto) , Basophils (%) (Auto) , Differential Total Cells Counted 100, Neutrophils % ( Manual) 66, Lymphocytes % (Manual) 27, Monocytes % (Manual) 7, Eosinophils % ( Manual) 0, Basophils % (Manual) 0, Band Neutrophils 0, Platelet Estimate DecreasedL, Platelet Morphology Normal, Anisocytosis 1+, Sodium Level 143, Potassium Level 3.9, Chloride Level 99, Carbon Dioxide Level 28, Anion Gap 16H, Blood Urea Nitrogen 28H, Creatinine 1.2H, Estimat Glomerular Filtration Rate , Glucose Level 68L, Calcium Level 8.5L, Total Bilirubin 0.6, Aspartate Amino Transf (AST/SGOT) 40, Alanine Aminotransferase (ALT/SGPT) 47H, Alkaline Phosphatase 68, Troponin I < 0.30, C-Reactive Protein, Quantitative 0.8H, Total Protein 5.6L, Albumin 3.3L, Globulin 2.3, Albumin/Globulin Ratio 1.4, Triglycerides Level 77, Cholesterol Level 195, LDL Cholesterol 116H, HDL Cholesterol 64H, Cholesterol/HDL Ratio 3.0L 08/09/16 09:40: Activated Partial Thromboplast Time 133H Height (Feet): 5 Height (Inches): 3.00 Weight (Pounds): 174 Cardiovascular: regular rhythm Respiratory/Chest: lungs clear Abdomen: normal bowel sounds, non tender, soft Edema: severe edema, pitting Objective skin is excoriated over bilat ext and has some pus over dorsum of the legs Marla Morse MD Aug 09, 2016 19:05
[2016-08-09 20:00] VITALS: BP 97/58
--- NOTE | 2016-08-09 21:30 | Consultation ---
DATE OF CONSULTATION: CONSULTING PHYSICIAN: Padmini Benedict M.D. HISTORY OF PRESENT ILLNESS: The patient is a 71-year-old female with a history of bipolar disorder and schizophrenia, been admitted to the [facility] with a chief complaint of shortness of breath. On walking during the evaluation, the patient presents with target amount of anxiety, impairment cognition including memory, concentration, and attention. The patient also presents with mood stability and being irritable. PAST PSYCHIATRIC HISTORY: She has a history of bipolar disorder, has been treated with antipsychotics and mood stabilizer. PAST MEDICAL HISTORY: Significant for acute renal failure, coronary artery disease, implantable cardioverter defibrillator in place with acute respiratory failure, morbid obesity, and congestive heart failure. ALLERGIES: There are no known drug allergies. SUBSTANCE ABUSE HISTORY: No history of illicit drug use or alcohol, however, she is a former smoker. She has a history of alcohol, however, no history of alcohol dependence. MENTAL STATUS EXAMINATION: The patient is alert and oriented times self, place, and situation. Mood is anxious. Affect is constricted. Congruent with mood. Thought process, there is a paucity of thought content. Cognition is impaired. Insight and judgment impaired. ASSESSMENT: [place] I Bipolar disorder, cognitive impairment. [place] II Deferred. [place] III Chronic obstructive pulmonary disease. [place] IV Low. [place] V Global assessment of functioning is 50. PLAN: 1. We will start the patient on Seroquel 50 mg by mouth at bedtime. 2. We will continue to follow and monitor symptoms. Padmini Benedict M.D. DR: CHRISTOPH JOB#: [id number] CC:
--- NOTE | 2016-08-09 23:15 | Consultation ---
DATE OF CONSULTATION: 08/09/2016 CARDIAC ELECTROPHYSIOLOGY CONSULTATION CONSULTING PHYSICIAN: Gab Quinonez M.D. REFERRING PHYSICIAN: Hallie Tiwari M.D. REASON FOR CONSULTATION: Management of atrial fibrillation and management of the patient's defibrillator. HISTORY OF PRESENT ILLNESS: The patient is a very pleasant 71-year-old lady under my cardiology care for many years with history of severe cardiomyopathy, ejection fraction around 30%, who underwent a [employer] defibrillator implantation by me in June 2010. The patient also has history of DVT, status post IVC filter. The patient presented to the emergency room with severe bilateral lower extremity edema as well as shortness of breath with walking a few steps. The patient has been using two pillows to sleep. She also felt palpitations. The patient was evaluated in the emergency room and was admitted and a cardiac electrophysiology consultation was obtained for further evaluation and management. PAST MEDICAL HISTORY: 1. Hypertension. 2. 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 3. History of cardiac arrest status post [employer] defibrillator implantation with the last interrogation years. 4. DVT, status post IVC filter. ALLERGIES: She has no known drug allergies. SOCIAL HISTORY: She quit smoking. Does not use drugs or drink alcohol. FAMILY HISTORY: Noncontributory. REVIEW OF SYSTEMS: Review of system was performed that was negative other than what was mentioned in the history of present illness. PHYSICAL EXAMINATION: VITAL SIGNS: Blood pressure is 111/72, pulse 70, respiratory rate 18, and temperature 98.5 degrees. NECK: Positive JVD. LUNGS: Decreased breath sounds. CHEST: There is a defibrillator in the left subclavian . CARDIOVASCULAR: Regular S1 and S2 with no gallop or murmur. ABDOMEN: Soft. EXTREMITIES: There is 3+ pitting edema and cellulitis. LABORATORY AND DIAGNOSTIC DATA: White count 3.1, hemoglobin 15.0, hematocrit 47.7, and platelet count of 106,000. Sodium was 142, potassium 3.9, BUN of 28, and creatinine 1.2. Troponins are negative x3. The digoxin level is 7.3. INR was 1.2. ASSESSMENT AND PLAN: 1. Status post [employer] defibrillator implantation for ventricular fibrillation arrest. We will re-interrogate the defibrillator for further evaluation. Last interrogation around three years. 2. Severe cardiomyopathy. Resume the patient's digoxin and Coreg and increase the Lasix to 40 mg IV b.i.d. We will add lisinopril and Aldactone to her medical regimen as above. 3. Paroxysmal atrial fibrillation. The patient is on Coumadin. We will re-interrogate the defibrillator for better management of atrial fibrillation. 4. Deep vein thrombosis, status post inferior vena cava filter. Coumadin was resumed and the patient was being followed up by Dr. Antoine as an outpatient. 5. History of hip fracture, status post open reduction and internal fixation. 6. Mild cognitive impairment with memory loss. CT of the brain is pending. Follow up by Dr. Chapa. Thank you very much for allowing me to participate in the care of this patient. Please do not hesitate to contact me for any questions regarding my evaluation. Gab Quinonez M.D. DR: YAN JOB#: [id number] CC:
[2016-08-10] VITALS: BP 112/62
[2016-08-10 00:53] LABS: APPEARANCE,URINE CLEAR; KETONES,URINE NEGATIVE (NEGATIVE); LEUKOCYTE ESTERASE ,URINE NEGATIVE (NEGATIVE); NITRITE,URINE NEGATIVE (NEGATIVE); PH,URINE 5 (4.5-8.0); PROTEIN,URINE NEGATIVE (NEGATIVE); UROBILINOGEN,URINE NORMAL MG/DL (0.0-1.0)
[2016-08-10 00:58] LABS: RBC,URINE 0-2 /HPF (0 - 2); SQUAMOUS EPITHELIAL CELL,UR FEW /LPF (NONE/OCC); WBC,URINE 0 /HPF (0 - 2)
[2016-08-10 02:52] LABS: INR 1.1 (0.9-1.1)
[2016-08-10 03:10] LABS: TROPONIN I < 0.30 ng/mL (<=0.30)
[2016-08-10] MEDS ORDERED: Heparin 25,000u/D5W 500ml 500 ML IV SCH ×4 (03:45→12:45)
[2016-08-10] MEDS ORDERED: Heparin 5000 units/ml inj IV ONE ×2 (03:45→04:15)
[2016-08-10 04:00] VITALS: BP 105/71
[2016-08-10] MEDS: ceFAZolin sod 0.5 GM in D5W 55 ML IV SCH ×3 (05:04→22:17)
[2016-08-10 08:00] VITALS: BP 116/98
[2016-08-10] MEDS: Aspirin Baby 81mg ORAL SCH (10:10)
[2016-08-10] MEDS: Spironolactone 25mg tab ORAL SCH (10:10)
[2016-08-10] MEDS: Lisinopril 2.5mg tab ORAL SCH (10:11)
[2016-08-10] MEDS: Digoxin 0.125mg tab ORAL SCH (10:11)
--- NOTE | 2016-08-10 11:11 | Podiatric Progress Note ---
Assessment/Plan Patient Marisa Ricardo is a 71 year old female who was admitted on August 08, 2016 at 12: 47 with difficulty breathing Problems: (1) Cellulitis (2) Peripheral edema (3) Onychomycosis (4) Callus of foot Assessment/Plan - Right foot cellulitis is improving. Left foot cellulitis is stable. - Start using a 4x4 gauze at the 1st interdigital space, apply A&D ointment to bilateral foot and ankles, and wrap the foot and ankle with yan wrap - Continue using antibiotics until cellulitis has resolved - Debrided toenails x 10 and one right foot callus without complications - Wound culture does not show any WBC or organisms Subjective Reason for consult Bilateral foot cellulitis Allergies: Coded Allergies: No Known Allergies (Verified Allergy, Unknown, 03/05/10) Subjective Patient states she is doing well. No foot pain or discomfort. No nausea, vomiting, fevers, or chills reportes. Objective Exam Last 24 Hour Vital Signs Date Time Temp Pulse Resp B/P Pulse Ox O2 Delivery O2 Flow Rate FiO2 08/10/16 10:11 116/98 08/10/16 10:11 100 08/10/16 08:00 96.8 111 18 116/98 97 Room Air 100 08/10/16 08:00 83 08/10/16 07:51 76 20 Room Air 08/10/16 04:00 109 08/10/16 04:00 97.5 118 19 105/71 98 Room Air 08/10/16 00:00 96.6 117 15 112/62 95 Room Air 08/10/16 00:00 95 08/09/16 20:00 96.6 100 18 97/58 95 Room Air 08/09/16 20:00 95 08/09/16 19:06 70 18 Room Air 08/09/16 16:00 99 08/09/16 16:00 98.0 68 18 125/75 97 Room Air 08/09/16 12:00 98.5 78 18 111/72 98 Room Air 08/09/16 12:00 93 Laboratory Tests Test 08/09/16 22:20 08/10/16 02:25 08/10/16 10:45 Urine Color Yellow Urine Appearance Clear Urine pH 5 (4.5-8.0) Urine Specific [place] 1.010 (1.005-1.035) Urine Protein Negative (NEGATIVE) Urine Glucose (UA) Negative (NEGATIVE) Urine Ketones Negative (NEGATIVE) Urine Occult Blood Negative (NEGATIVE) Urine Nitrite Negative (NEGATIVE) Urine Bilirubin Negative (NEGATIVE) Urine Urobilinogen Normal MG/DL (0.0-1.0) Urine Leukocyte Esterase Negative (NEGATIVE) Urine RBC 0-2 /HPF (0 - 2) Urine WBC 0 /HPF (0 - 2) Urine Squamous Epithelial Cells Few /LPF (NONE/OCC) Urine Bacteria None /HPF (NONE) Prothrombin Time 11.0 SEC (9.30-11.50) Prothromb Time International Ratio 1.1 (0.9-1.1) Activated Partial Thromboplast Time 36 SEC (23-33) H Pending Troponin I < 0.30 ng/mL (<=0.30) Microbiology Date/Time Source Procedure Growth Status 08/09/16 17:30 Foot Left Gram Stain - Final Resulted 08/09/16 17:30 Foot Left Wound Culture - Preliminary Resulted Exam Narrative Right foot edema and erythema has improved. Left foot erythema and edema is stable. Bilateral foot and lower legs with pitting edema. Thick, discolored, and elongated toenails x 10. Callus plantar right foot sub 4th metatarsal head Emmett Blue DPM Aug 10, 2016 11:11
[2016-08-10 11:46] VITALS: BP 108/79
--- NOTE | 2016-08-10 12:21 | Pulmonology Progress Note ---
Assessment/Plan Problems: (1) Acute respiratory failure (2) Peripheral edema (3) Cellulitis (4) ICD (implantable cardioverter-defibrillator) in place (5) CAD (coronary artery disease) Assessment/Plan IV antibiotic on ancef diuretics, Lasix IV bid psych and neuro evaluation ICD was interrogated on heparin and coumadin dc planning to [facility] Subjective ROS Limited/Unobtainable: No - fee Interval Events: feeling better Allergies: Coded Allergies: No Known Allergies (Verified Allergy, Unknown, 03/05/10) Objective Last 24 Hour Vital Signs Date Time Temp Pulse Resp B/P Pulse Ox O2 Delivery O2 Flow Rate FiO2 08/10/16 11:46 96.9 77 18 108/79 98 Room Air 100 08/10/16 10:11 116/98 08/10/16 10:11 100 08/10/16 08:00 96.8 111 18 116/98 97 Room Air 100 08/10/16 08:00 111 08/10/16 07:51 76 20 Room Air 08/10/16 04:00 109 08/10/16 04:00 97.5 118 19 105/71 98 Room Air 08/10/16 00:00 96.6 117 15 112/62 95 Room Air 08/10/16 00:00 95 08/09/16 20:00 96.6 100 18 97/58 95 Room Air 08/09/16 20:00 95 08/09/16 19:06 70 18 Room Air 08/09/16 16:00 99 08/09/16 16:00 98.0 68 18 125/75 97 Room Air Intake and Output 08/09/16 08/10/16 19:00 07:00 Intake Total 1110 ml 200 ml Balance 1110 ml 200 ml Intake Oral 1110 ml 200 ml # Voids 4 4 # Bowel Movements 2 General Appearance: WD/WN HEENT: normocephalic, atraumatic Respiratory/Chest: chest wall non-tender, normal breath sounds Breasts: no masses Cardiovascular: normal peripheral pulses, normal rate Abdomen: normal bowel sounds, soft, non tender Extremities: no cyanosis Skin: no rash Microbiology Date/Time Source Procedure Growth Status 08/09/16 17:30 Foot Left Gram Stain - Final Resulted 08/09/16 17:30 Foot Left Wound Culture - Preliminary Resulted Laboratory Tests 08/09/16 22:20: Urine Color Yellow, Urine Appearance Clear, Urine pH 5, Urine Specific [place] 1.010, Urine Protein Negative, Urine Glucose (UA) Negative, Urine Ketones Negative, Urine Occult Blood Negative, Urine Nitrite Negative, Urine Bilirubin Negative, Urine Urobilinogen Normal, Urine Leukocyte Esterase Negative, Urine RBC 0-2, Urine WBC 0, Urine Squamous Epithelial Cells Few, Urine Bacteria None 08/10/16 02:25: Prothrombin Time 11.0, Prothromb Time International Ratio 1.1, Activated Partial Thromboplast Time 36H, Troponin I < 0.30 08/10/16 10:45: Activated Partial Thromboplast Time 133H Current Medications Medications (Trade) Dose Ordered Sig/Lala Route PRN Reason Start Time Stop Time Status Last Admin Dose Admin Acetaminophen (Tylenol) 650 mg Q4H PRN ORAL FEVER 08/08/16 15:45 09/07/16 15:44 Albuterol/ Ipratropium (DuoNeb 0.5-3(2.5)mg/3ml) 3 ml Q4H PRN HHN Shortness of Breath 08/08/16 15:45 08/13/16 15:44 Aspirin (ASA) 162 mg DAILY ORAL 08/09/16 09:00 09/08/16 08:59 08/10/16 10:10 Cefazolin Sodium/ Dextrose (Ancef/D5W) 55 ml @ 110 mls/hr Q8HR IV 08/09/16 15:00 08/16/16 14:59 08/10/16 05:04 Dextrose STAT PRN IV Hypoglycemia 08/08/16 15:45 09/07/16 15:44 Digoxin (Lanoxin) 0.125 mg DAILY ORAL 08/10/16 09:00 09/09/16 08:59 08/10/16 10:11 Diltiazem HCl (Cardizem) 10 mg Q1H PRN IV HR > 120 08/08/16 15:45 09/07/16 15:44 Furosemide (Lasix) 40 mg EVERY 12 HOURS IV 08/09/16 21:00 09/08/16 20:59 08/10/16 10:10 Heparin Sodium/ Dextrose (Heparin) 500 ml @ 14.156 mls/ hr adjust per protocol IV 08/10/16 12:45 09/09/16 12:44 Lisinopril (Zestril) 2.5 mg DAILY ORAL 08/10/16 09:00 09/09/16 08:59 08/10/16 10:11 Nitroglycerin (Ntg) 0.4 mg Q5MIN X 3 DOSES PRN SL Prn Chest Pain 08/08/16 15:45 09/07/16 15:44 Ondansetron HCl (Zofran) 4 mg Q6H PRN IVP Nausea & Vomiting 08/08/16 15:45 09/07/16 15:44 Pantoprazole (Protonix) 40 mg DAILY ORAL 08/09/16 09:00 09/08/16 08:59 08/10/16 10:11 Polyethylene Glycol (Miralax) 17 gm DAILYPRN PRN ORAL Constipation 08/08/16 15:45 09/07/16 15:44 Quetiapine Fumarate (SEROquel) 50 mg BEDTIME ORAL 08/09/16 21:00 09/08/16 20:59 08/09/16 21:15 Spironolactone (Aldactone) 25 mg DAILY ORAL 08/10/16 09:00 09/09/16 08:59 08/10/16 10:10 Temazepam (Restoril) 15 mg HSPRN PRN ORAL Insomnia 08/08/16 15:45 08/15/16 15:44 Warfarin Sodium (Coumadin per pharmacy) 1 ea DAILY PRN MISC Per rx protocol 08/09/16 16:15 09/08/16 16:14 Warfarin Sodium 5 mg 5 mg COUMADIN ONCE ORAL 08/10/16 17:00 08/10/16 17:01 SKYLER NOGUERA Aug 10, 2016 12:21
--- NOTE | 2016-08-10 14:14 | Cardiac Electrophysiology PN ---
Assessment/Plan Assessment/Plan 1. Status post [employer] defibrillator implantation that was re-interrogated and showed Nl Fx 2. Severe cardiomyopathy. Continue digoxin, Coreg, Lasix to 40 mg IV b.i.d., lisinopril and Aldactone 3. Paroxysmal atrial fibrillation. Change heparin to Xarelto 20 daily. 4. Deep vein thrombosis, status post inferior vena cava filter.Start Xarelto 5. History of hip fracture, status post open reduction and internal fixation. 6. Mild cognitive impairment with memory loss. Follow up by Dr. Chapa. DW Dr Tiwari and RN Subjective Subjective Diuresing well. No chest pain or SOB. Objective Last 24 Hour Vital Signs Date Time Temp Pulse Resp B/P Pulse Ox O2 Delivery O2 Flow Rate FiO2 08/10/16 12:00 100 08/10/16 11:46 96.9 77 18 108/79 98 Room Air 100 08/10/16 10:11 116/98 08/10/16 10:11 100 08/10/16 08:00 96.8 111 18 116/98 97 Room Air 100 08/10/16 08:00 111 08/10/16 07:51 76 20 Room Air 08/10/16 04:00 109 08/10/16 04:00 97.5 118 19 105/71 98 Room Air 08/10/16 00:00 96.6 117 15 112/62 95 Room Air 08/10/16 00:00 95 08/09/16 20:00 96.6 100 18 97/58 95 Room Air 08/09/16 20:00 95 08/09/16 19:06 70 18 Room Air 08/09/16 16:00 99 08/09/16 16:00 98.0 68 18 125/75 97 Room Air Intake and Output 08/09/16 08/10/16 19:00 07:00 Intake Total 1110 ml 200 ml Balance 1110 ml 200 ml Intake Oral 1110 ml 200 ml # Voids 4 4 # Bowel Movements 2 Laboratory Tests Test 08/09/16 22:20 08/10/16 02:25 08/10/16 10:45 Urine Color Yellow Urine Appearance Clear Urine pH 5 (4.5-8.0) Urine Specific [place] 1.010 (1.005-1.035) Urine Protein Negative (NEGATIVE) Urine Glucose (UA) Negative (NEGATIVE) Urine Ketones Negative (NEGATIVE) Urine Occult Blood Negative (NEGATIVE) Urine Nitrite Negative (NEGATIVE) Urine Bilirubin Negative (NEGATIVE) Urine Urobilinogen Normal MG/DL (0.0-1.0) Urine Leukocyte Esterase Negative (NEGATIVE) Urine RBC 0-2 /HPF (0 - 2) Urine WBC 0 /HPF (0 - 2) Urine Squamous Epithelial Cells Few /LPF (NONE/OCC) Urine Bacteria None /HPF (NONE) Prothrombin Time 11.0 SEC (9.30-11.50) Prothromb Time International Ratio 1.1 (0.9-1.1) Activated Partial Thromboplast Time 36 SEC (23-33) H 133 SEC (23-33) H Troponin I < 0.30 ng/mL (<=0.30) Microbiology Date/Time Source Procedure Growth Status 08/09/16 17:30 Foot Left Gram Stain - Final Resulted 08/09/16 17:30 Foot Left Wound Culture - Preliminary Resulted Objective NECK: Positive JVD. LUNGS: Decreased breath sounds. CHEST: Defibrillator in the left subclavian intact CARDIOVASCULAR: Regular S1 and S2 with no gallop or murmur. ABDOMEN: Soft. EXTREMITIES: 3+ pitting edema and cellulitis. HANSEL KEENE Aug 10, 2016 14:14
--- NOTE | 2016-08-10 15:38 | Diagnostic Imaging Report ---
APPROVED REPORT CPT Code: 71420 Present Symptoms Shortness of breath Comments: Post IVC filter Placement BILATERAL: Imaging reveals a patent deep venous system bilaterally. There is no evidence of thrombus within the femoral, popliteal or tibial segments. The greater saphenous veins are also within normal limits. Doppler indicates normal spontaneous flow within these segments.
--- NOTE | 2016-08-10 15:39 | Diagnostic Imaging Report ---
APPROVED REPORT CPT Code: 77190 Symptoms Comments: SOB Fainting Edema BILATERAL: Common femoral artery waveform analysis is within normal limits at rest. Color flow duplex sonography reveals patency of the superficial femoral, popliteal, and tibial arteries, there is no evidence of stenosis or occlusion within these segments. Doppler tibial artery waveform analysis is within normal limits, bilaterally. There is no evidence of significant arterial occlusive disease, bilaterally. Note: Vasodilated Doppler wave form noted in the tibial arteries due to edema, bilaterally.
[2016-08-10 16:00] VITALS: BP 107/67
[2016-08-10] MEDS: Xarelto 15mg tab ORAL SCH (16:00)
[2016-08-10] MEDS ORDERED: Warfarin Sodium 5mg ORAL ONE (17:00)
[2016-08-10 20:30] VITALS: BP 136/69
--- NOTE | 2016-08-10 23:20 | General Progress Note ---
Assessment/Plan Assessment/Plan CHF WITH HIGH BNP iv duuretics A FIB POOR HYGEINE will consider psychiatric consult bipolar vs paranoid schizophrenia iv abtx ck ua cs transfer to [facility] when once medically stable Subjective Allergies: Coded Allergies: No Known Allergies (Verified Allergy, Unknown, 03/05/10) Subjective 08/08/2016 patient with lives at home with afib not compliant with meds comes in with CHF 08/09/2016 she is more alert and follows commands .responds more appropiately 08/10 patient wants to be transfered to [facility] Objective Last 24 Hour Vital Signs Date Time Temp Pulse Resp B/P Pulse Ox O2 Delivery O2 Flow Rate FiO2 08/10/16 20:30 97.0 109 20 136/69 95 Room Air 08/10/16 20:21 98 107/67 08/10/16 20:00 109 08/10/16 19:16 98 20 Room Air 08/10/16 16:00 97.0 93 17 107/67 99 Room Air 100 08/10/16 16:00 96 08/10/16 12:00 100 08/10/16 11:46 96.9 77 18 108/79 98 Room Air 100 08/10/16 10:11 116/98 08/10/16 10:11 100 08/10/16 08:00 96.8 111 18 116/98 97 Room Air 100 08/10/16 08:00 111 08/10/16 07:51 76 20 Room Air 08/10/16 04:00 109 08/10/16 04:00 97.5 118 19 105/71 98 Room Air 08/10/16 00:00 96.6 117 15 112/62 95 Room Air 08/10/16 00:00 95 Intake and Output 08/09/16 08/10/16 19:00 07:00 Intake Total 1110 ml 200 ml Balance 1110 ml 200 ml Intake Oral 1110 ml 200 ml # Voids 4 4 # Bowel Movements 2 Laboratory Tests 08/10/16 02:25: Prothrombin Time 11.0, Prothromb Time International Ratio 1.1, Activated Partial Thromboplast Time 36H, Troponin I < 0.30 08/10/16 10:45: Activated Partial Thromboplast Time 133H Height (Feet): 5 Height (Inches): 3.00 Weight (Pounds): 173 General Appearance: alert, agitated Cardiovascular: irregularly irregular Respiratory/Chest: decreased breath sounds Abdomen: normal bowel sounds Edema: moderate edema Objective skin is excoriated over bilat ext and has some pus over dorsum of the legs Marla Morse MD Aug 10, 2016 23:19
[2016-08-11 00:26] VITALS: BP 109/75
[2016-08-11 04:36] VITALS: BP 96/57
[2016-08-11] MEDS: ceFAZolin sod 0.5 GM in D5W 55 ML IV SCH ×3 (05:56→22:17)
[2016-08-11 07:27] LABS: MEAN CORPUSCULAR HEMOGLOBIN 29.3 PG (27.0-31.0); MEAN CORPUSCULAR HGB CONC 31.7 G/DL (32.0-36.0); MEAN CORPUSCULAR VOLUME 93 FL (80-99); MEAN PLATELET VOLUME 10.5 FL (6.5-10.1); PLATELET COUNT 91 K/UL (150-450); RED CELL DISTRIBUTION WIDTH 15.2 % (11.6-14.8); WHITE BLOOD COUNT 2.2 K/UL (4.8-10.8)
[2016-08-11 07:46] VITALS: BP 113/60
[2016-08-11 07:52] LABS: ALANINE AMINOTRANSFERASE 19 U/L (3-33); ALBUMIN/GLOBULIN RATIO 1.1 (1.0-2.7); ASPARTATE AMINO TRANSFERASE 16 U/L (5-40); CALCIUM 7.7 mg/dL (8.6-10.2); CARBON DIOXIDE 34 mEQ/L (20-30); CHLORIDE 100 mEQ/L (98-107); CREATININE 1.3 mg/dL (0.5-0.9); HEMOLYSIS 5; SODIUM 144 mEQ/L (135-145); TOTAL PROTEIN 4.8 g/dL (6.6-8.7)
[2016-08-11 07:58] LABS: PROTHROMBIN TIME 10.8 SEC (9.30-11.50)
[2016-08-11 08:00] LABS: ANION GAP 10 (5-15)
[2016-08-11 08:13] LABS: POTASSIUM 2.7 mEQ/L (3.4-4.9)
--- NOTE | 2016-08-11 09:03 | Podiatric Progress Note ---
Assessment/Plan Patient Marisa Ricardo is a 71 year old female who was admitted on August 08, 2016 at 12: 47 with difficulty breathing Problems: (1) Cellulitis (2) Peripheral edema (3) Onychomycosis (4) Callus of foot Assessment/Plan - Bilateral lower extremity cellulitis is improving. Continue current treatment with painting the areas of blisters with betadine and wrapping legs with yan wrap - Patient instructed to monitor her shoe gear and avoid using shoes that contributed to blister formation - Continue antibiotics until cellulitis has resolved. Prelim culture shows gram negative rods. Follow up final results - Patient to trim her nails regularly and improve pedal hygiene Subjective Reason for consult Bilateral lower extremity cellulitis Allergies: Coded Allergies: No Known Allergies (Verified Allergy, Unknown, 03/05/10) Subjective Patient states she is doing well. No nausea, vomiting, fevers, or chills. No leg or foot pain reported. No overnight events Objective Exam Last 24 Hour Vital Signs Date Time Temp Pulse Resp B/P Pulse Ox O2 Delivery O2 Flow Rate FiO2 08/11/16 07:46 97.3 100 18 113/60 94 Room Air 08/11/16 04:36 96.7 99 20 96/57 94 08/11/16 04:00 115 08/11/16 00:26 98.1 107 20 109/75 94 Room Air 08/11/16 00:00 111 08/10/16 20:30 97.0 109 20 136/69 95 Room Air 08/10/16 20:21 98 107/67 08/10/16 20:00 109 08/10/16 19:16 98 20 Room Air 08/10/16 16:00 97.0 93 17 107/67 99 Room Air 100 08/10/16 16:00 96 08/10/16 12:00 100 08/10/16 11:46 96.9 77 18 108/79 98 Room Air 100 08/10/16 10:11 116/98 08/10/16 10:11 100 Laboratory Tests Test 08/10/16 10:45 08/11/16 06:32 Activated Partial Thromboplast Time 133 SEC (23-33) H White Blood Count 2.2 K/UL (4.8-10.8) L Red Blood Count 4.60 M/UL (4.20-5.40) Hemoglobin 13.5 G/DL (12.0-16.0) Hematocrit 42.6 % (37.0-47.0) Mean Corpuscular Volume 93 FL (80-99) Mean Corpuscular Hemoglobin 29.3 PG (27.0-31.0) Mean Corpuscular Hemoglobin Concent 31.7 G/DL (32.0-36.0) L Red Cell Distribution Width 15.2 % (11.6-14.8) H Platelet Count 91 K/UL (150-450) L Mean Platelet Volume 10.5 FL (6.5-10.1) H Neutrophils (%) (Auto) % (45.0-75.0) Lymphocytes (%) (Auto) % (20.0-45.0) Monocytes (%) (Auto) % (1.0-10.0) Eosinophils (%) (Auto) % (0.0-3.0) Basophils (%) (Auto) % (0.0-2.0) Neutrophils % (Manual) Pending Lymphocytes % (Manual) Pending Platelet Estimate Pending Platelet Morphology Pending Prothrombin Time 10.8 SEC (9.30-11.50) Prothromb Time International Ratio 1.0 (0.9-1.1) Sodium Level 144 mEQ/L (135-145) Potassium Level 2.7 mEQ/L (3.4-4.9) *L Chloride Level 100 mEQ/L (98-107) Carbon Dioxide Level 34 mEQ/L (20-30) H Anion Gap 10 (5-15) Blood Urea Nitrogen 27 mg/dL (7-23) H Creatinine 1.3 mg/dL (0.5-0.9) H Estimat Glomerular Filtration Rate mL/min (>60) Glucose Level 135 mg/dL (74-106) H Calcium Level 7.7 mg/dL (8.6-10.2) L Total Bilirubin < 0.2 mg/dL (0.0-1.2) Aspartate Amino Transf (AST/SGOT) 16 U/L (5-40) Alanine Aminotransferase (ALT/SGPT) 19 U/L (3-33) Alkaline Phosphatase 75 U/L (35-104) Pro-B-Type Natriuretic Peptide 3929 pg/mL (0-125) H Total Protein 4.8 g/dL (6.6-8.7) L Albumin 2.6 g/dL (3.5-5.2) L Globulin 2.2 g/dL Albumin/Globulin Ratio 1.1 (1.0-2.7) Microbiology Date/Time Source Procedure Growth Status 08/09/16 17:30 Foot Left Gram Stain - Final Resulted 08/09/16 17:30 Wound Culture - Preliminary Gram Negative [place] Resulted Exam Narrative Bilateral lower extremity edema and erythema is improving. Emmett Blue DPM Aug 11, 2016 09:03
[2016-08-11] MEDS: Spironolactone 25mg tab ORAL SCH (09:17)
[2016-08-11] MEDS: Digoxin 0.125mg tab ORAL SCH (09:17)
[2016-08-11] MEDS: Lisinopril 2.5mg tab ORAL SCH (09:18)
[2016-08-11] MEDS: Aspirin Baby 81mg ORAL SCH (09:18)
--- NOTE | 2016-08-11 09:41 | General Progress Note ---
Assessment/Plan Assessment/Plan CHF WITH HIGH BNP iv duuretics A FIB POOR HYGEINE will consider psychiatric consult bipolar vs paranoid schizophrenia iv abtx ck ua cs transfer to [facility] when once medically stable Subjective Allergies: Coded Allergies: No Known Allergies (Verified Allergy, Unknown, 03/05/10) Subjective 08/08/2016 patient with lives at home with afib not compliant with meds comes in with CHF 08/09/2016 she is more alert and follows commands .responds more appropiately 08/10 patient wants to be transfered to [facility] 08/11/2016 still on iv heparin more alrt and follows commands less SOB Objective Last 24 Hour Vital Signs Date Time Temp Pulse Resp B/P Pulse Ox O2 Delivery O2 Flow Rate FiO2 08/11/16 09:18 112/60 08/11/16 09:17 100 112/60 08/11/16 09:17 110 08/11/16 07:46 97.3 100 18 113/60 94 Room Air 08/11/16 04:36 96.7 99 20 96/57 94 08/11/16 04:00 115 08/11/16 00:26 98.1 107 20 109/75 94 Room Air 08/11/16 00:00 111 08/10/16 20:30 97.0 109 20 136/69 95 Room Air 08/10/16 20:21 98 107/67 08/10/16 20:00 109 08/10/16 19:16 98 20 Room Air 08/10/16 16:00 97.0 93 17 107/67 99 Room Air 100 08/10/16 16:00 96 08/10/16 12:00 100 08/10/16 11:46 96.9 77 18 108/79 98 Room Air 100 08/10/16 10:11 116/98 08/10/16 10:11 100 Intake and Output 08/10/16 08/11/16 19:00 07:00 Intake Total 740 ml Output Total 2500 ml 600 ml Balance -1760 ml -600 ml Intake Oral 630 ml IV Total 110 ml Output Urine Total 2500 ml 600 ml # Voids 4 2 Laboratory Tests 08/10/16 10:45: Activated Partial Thromboplast Time 133H 08/11/16 06:32: White Blood Count 2.2L, Red Blood Count 4.60, Hemoglobin 13.5, Hematocrit 42.6, Mean Corpuscular Volume 93, Mean Corpuscular Hemoglobin 29.3, Mean Corpuscular Hemoglobin Concent 31.7L, Red Cell Distribution Width 15.2H, Platelet Count 91L , Mean Platelet Volume 10.5H, Neutrophils (%) (Auto) , Lymphocytes (%) (Auto) , Monocytes (%) (Auto) , Eosinophils (%) (Auto) , Basophils (%) (Auto) , Neutrophils % (Manual) [Pending], Lymphocytes % (Manual) [Pending], Platelet Estimate [Pending], Platelet Morphology [Pending], Prothrombin Time 10.8, Prothromb Time International Ratio 1.0, Sodium Level 144, Potassium Level 2.7*L , Chloride Level 100, Carbon Dioxide Level 34H, Anion Gap 10, Blood Urea Nitrogen 27H, Creatinine 1.3H, Estimat Glomerular Filtration Rate , Glucose Level 135H, Calcium Level 7.7L, Total Bilirubin < 0.2, Aspartate Amino Transf ( AST/SGOT) 16, Alanine Aminotransferase (ALT/SGPT) 19, Alkaline Phosphatase 75, Pro-B-Type Natriuretic Peptide 3929H, Total Protein 4.8L, Albumin 2.6L, Globulin 2.2, Albumin/Globulin Ratio 1.1 Height (Feet): 5 Height (Inches): 3.00 Weight (Pounds): 172 General Appearance: alert, confused, mild distress Cardiovascular: irregularly irregular Respiratory/Chest: decreased breath sounds Abdomen: normal bowel sounds, non tender Edema: other Objective skin is excoriated over bilat ext and has some pus over dorsum of the legs Marla Morse MD Aug 11, 2016 09:41
[2016-08-11 10:14] LABS: BAND NEUTROPHILS % (MANUAL) 0 % (0-8); EOSINOPHILS % (MANUAL) 1 % (0-3); LYMPHOCYTES % (MANUAL) 22 % (20-45); NEUTROPHILS % (MANUAL) 66 % (45-75); TOTAL CELLS COUNTED 100
[2016-08-11 10:15] LABS: BASOPHILS % (MANUAL) 0 % (0-2); PLATELET ESTIMATE DECREASED
[2016-08-11] MEDS ORDERED: NS 275ml ONE (10:24)
[2016-08-11] MEDS ORDERED: Tubing IV Secondary IV ONE (10:24)
[2016-08-11 10:43] LABS: PLATELET MORPHOLOGY NORMAL
[2016-08-11 11:31] VITALS: BP 130/70
--- NOTE | 2016-08-11 12:49 | Consultation ---
Consult Note Consult Note ID Dic# [id number] TIMO GRESHAM M.D. Aug 11, 2016 12:49
[2016-08-11 15:19] VITALS: BP 141/77
--- NOTE | 2016-08-11 15:30 | Cardiac Electrophysiology PN ---
Assessment/Plan Assessment/Plan 1. Status post [facility] [facility] defibrillator implantation that was re-interrogated and showed Nl Fx. Battery m,ore than 2 years. 2. Severe cardiomyopathy EF 20-25%. Continue digoxin, Coreg, Lasix 40 mg IV b.i.d., lisinopril and Aldactone 3. Paroxysmal atrial fibrillation. On Xarelto 15 daily. 4. Deep vein thrombosis, status post inferior vena cava filter.On Xarelto 5. History of hip fracture, status post open reduction and internal fixation. 6. Mild cognitive impairment with memory loss. Follow up by Dr. Chapa. MELINDA RN Subjective Subjective Diuresing well with IV Lasix. No chest pain or SOB. Started on Xarelto 15 mg daily. Objective Last 24 Hour Vital Signs Date Time Temp Pulse Resp B/P Pulse Ox O2 Delivery O2 Flow Rate FiO2 08/11/16 15:19 97.6 103 18 141/77 96 Room Air 08/11/16 12:00 98 08/11/16 11:31 97.7 114 18 130/70 95 Room Air 08/11/16 09:18 112/60 08/11/16 09:17 100 112/60 08/11/16 09:17 110 08/11/16 08:20 103 16 Room Air 21 08/11/16 08:00 108 08/11/16 07:46 97.3 100 18 113/60 94 Room Air 08/11/16 04:36 96.7 99 20 96/57 94 08/11/16 04:00 115 08/11/16 00:26 98.1 107 20 109/75 94 Room Air 08/11/16 00:00 111 08/10/16 20:30 97.0 109 20 136/69 95 Room Air 08/10/16 20:21 98 107/67 08/10/16 20:00 109 08/10/16 19:16 98 20 Room Air 08/10/16 16:00 97.0 93 17 107/67 99 Room Air 100 08/10/16 16:00 96 Intake and Output 08/10/16 08/11/16 19:00 07:00 Intake Total 740 ml Output Total 2500 ml 600 ml Balance -1760 ml -600 ml Intake Oral 630 ml IV Total 110 ml Output Urine Total 2500 ml 600 ml # Voids 4 2 Laboratory Tests Test 08/11/16 06:32 White Blood Count 2.2 K/UL (4.8-10.8) L Red Blood Count 4.60 M/UL (4.20-5.40) Hemoglobin 13.5 G/DL (12.0-16.0) Hematocrit 42.6 % (37.0-47.0) Mean Corpuscular Volume 93 FL (80-99) Mean Corpuscular Hemoglobin 29.3 PG (27.0-31.0) Mean Corpuscular Hemoglobin Concent 31.7 G/DL (32.0-36.0) L Red Cell Distribution Width 15.2 % (11.6-14.8) H Platelet Count 91 K/UL (150-450) L Mean Platelet Volume 10.5 FL (6.5-10.1) H Neutrophils (%) (Auto) % (45.0-75.0) Lymphocytes (%) (Auto) % (20.0-45.0) Monocytes (%) (Auto) % (1.0-10.0) Eosinophils (%) (Auto) % (0.0-3.0) Basophils (%) (Auto) % (0.0-2.0) Differential Total Cells Counted 100 Neutrophils % (Manual) 66 % (45-75) Lymphocytes % (Manual) 22 % (20-45) Monocytes % (Manual) 11 % (1-10) H Eosinophils % (Manual) 1 % (0-3) Basophils % (Manual) 0 % (0-2) Band Neutrophils 0 % (0-8) Platelet Estimate Decreased L Platelet Morphology Normal Prothrombin Time 10.8 SEC (9.30-11.50) Prothromb Time International Ratio 1.0 (0.9-1.1) Sodium Level 144 mEQ/L (135-145) Potassium Level 2.7 mEQ/L (3.4-4.9) *L Chloride Level 100 mEQ/L (98-107) Carbon Dioxide Level 34 mEQ/L (20-30) H Anion Gap 10 (5-15) Blood Urea Nitrogen 27 mg/dL (7-23) H Creatinine 1.3 mg/dL (0.5-0.9) H Estimat Glomerular Filtration Rate mL/min (>60) Glucose Level 135 mg/dL (74-106) H Calcium Level 7.7 mg/dL (8.6-10.2) L Total Bilirubin < 0.2 mg/dL (0.0-1.2) Aspartate Amino Transf (AST/SGOT) 16 U/L (5-40) Alanine Aminotransferase (ALT/SGPT) 19 U/L (3-33) Alkaline Phosphatase 75 U/L (35-104) Pro-B-Type Natriuretic Peptide 3929 pg/mL (0-125) H Total Protein 4.8 g/dL (6.6-8.7) L Albumin 2.6 g/dL (3.5-5.2) L Globulin 2.2 g/dL Albumin/Globulin Ratio 1.1 (1.0-2.7) Microbiology Date/Time Source Procedure Growth Status 08/09/16 22:20 Urine,Clean Catch Urine Culture - Preliminary Resulted 08/09/16 17:30 Foot Left Gram Stain - Final Resulted 08/09/16 17:30 Wound Culture - Preliminary Gram Negative Anderson Resulted Objective NECK: Positive JVD. LUNGS: Decreased breath sounds. CHEST: Defibrillator in the left subclavian intact CARDIOVASCULAR: Regular S1 and S2 with no gallop or murmur. ABDOMEN: Soft. EXTREMITIES: 3+ pitting edema and cellulitis. HANSEL KEENE Aug 11, 2016 15:30
[2016-08-11] MEDS: Xarelto 15mg tab ORAL SCH (15:54)
--- NOTE | 2016-08-11 16:17 | Pulmonology Progress Note ---
Assessment/Plan Assessment/Plan ASSESSMENT acute on chronic systolic HF SOB 2 to acute on chronic SHF dilated cardiomyopathy PAF CAD ICD Hx of DVT, s/p IVC filter mild pulmonary HTN cellulitis BLE peripheral edema bipolar disorder with cognitive impairment possible vascular dementia polycythemia leukopenia thrombocytopenia onychomycosis callus R foot hypokalemia PLAN OF CARE tele O2 HHN prn pulse oximetry currently stable on RA CXR with C M, no acute findings ECHO with EF 20-25% and RVS of 41 c/w mild pulmonary HTN medical management of SHF with BB, Digoxin, low dose DASIA and diuretics: Lasix and Aldactone monitor I/I, renal parameters, lytes replace K today, check K in am cardio and cardio EP follow s/p re-integration of IVC- normal fx a/coagulation with Xarelto ( for PAF and hx of DVT), abx, ID follows wound cx - contaminant as per ID Venous Duplex BLE negative s/p IVC filter Arterial Duplex no evidence of stenosis or occlusion neuro follows , possible vascular dementia, recommended CT head psych eval noted, per psych started on Seroquel for bipolar disorder with cognitive impairment cotton stripper seen and evaluated s/p I&D on the bedside for blisters, debridement of toe mails bilaterally and R callus wound care as per cotton stripper recommendation watch WBC and PLT count case discussed and evaluated by supervising physician Subjective Allergies: Coded Allergies: No Known Allergies (Verified Allergy, Unknown, 03/05/10) Subjective leukopenic today, afebrile on RA pulse ox stable, no signs of respiratory distress K-2.7, PLT trending down creat-1.3 Objective Last 24 Hour Vital Signs Date Time Temp Pulse Resp B/P Pulse Ox O2 Delivery O2 Flow Rate FiO2 08/11/16 15:19 97.6 103 18 141/77 96 Room Air 08/11/16 12:00 98 08/11/16 11:31 97.7 114 18 130/70 95 Room Air 08/11/16 09:18 112/60 08/11/16 09:17 100 112/60 08/11/16 09:17 110 08/11/16 08:20 103 16 Room Air 21 08/11/16 08:00 108 08/11/16 07:46 97.3 100 18 113/60 94 Room Air 08/11/16 04:36 96.7 99 20 96/57 94 08/11/16 04:00 115 08/11/16 00:26 98.1 107 20 109/75 94 Room Air 08/11/16 00:00 111 08/10/16 20:30 97.0 109 20 136/69 95 Room Air 08/10/16 20:21 98 107/67 08/10/16 20:00 109 08/10/16 19:16 98 20 Room Air Intake and Output 08/10/16 08/11/16 19:00 07:00 Intake Total 740 ml Output Total 2500 ml 600 ml Balance -1760 ml -600 ml Intake Oral 630 ml IV Total 110 ml Output Urine Total 2500 ml 600 ml # Voids 4 2 General Appearance: no acute distress, other - alert HEENT: normocephalic, atraumatic, anicteric Respiratory/Chest: chest wall non-tender, no accessory muscle use, decreased breath sounds, other - L chest AICD Cardiovascular: normal rate, no gallop/murmur, irregularly irregular Abdomen: normal bowel sounds, soft, non tender Extremities: other - + 2 to 3 edema BLE Neurologic/Psychiatric: alert Microbiology Date/Time Source Procedure Growth Status 08/09/16 22:20 Urine,Clean Catch Urine Culture - Preliminary Resulted 08/09/16 17:30 Foot Left Gram Stain - Final Resulted 08/09/16 17:30 Wound Culture - Preliminary Gram Negative Anderson Resulted Laboratory Tests 08/11/16 06:32: White Blood Count 2.2L, Red Blood Count 4.60, Hemoglobin 13.5, Hematocrit 42.6, Mean Corpuscular Volume 93, Mean Corpuscular Hemoglobin 29.3, Mean Corpuscular Hemoglobin Concent 31.7L, Red Cell Distribution Width 15.2H, Platelet Count 91L , Mean Platelet Volume 10.5H, Neutrophils (%) (Auto) , Lymphocytes (%) (Auto) , Monocytes (%) (Auto) , Eosinophils (%) (Auto) , Basophils (%) (Auto) , Differential Total Cells Counted 100, Neutrophils % (Manual) 66, Lymphocytes % ( Manual) 22, Monocytes % (Manual) 11H, Eosinophils % (Manual) 1, Basophils % ( Manual) 0, Band Neutrophils 0, Platelet Estimate DecreasedL, Platelet Morphology Normal, Prothrombin Time 10.8, Prothromb Time International Ratio 1.0 , Sodium Level 144, Potassium Level 2.7*L, Chloride Level 100, Carbon Dioxide Level 34H, Anion Gap 10, Blood Urea Nitrogen 27H, Creatinine 1.3H, Estimat Glomerular Filtration Rate , Glucose Level 135H, Calcium Level 7.7L, Total Bilirubin < 0.2, Aspartate Amino Transf (AST/SGOT) 16, Alanine Aminotransferase (ALT/SGPT) 19, Alkaline Phosphatase 75, Pro-B-Type Natriuretic Peptide 3929H, Total Protein 4.8L, Albumin 2.6L, Globulin 2.2, Albumin/Globulin Ratio 1.1 Current Medications Medications (Trade) Dose Ordered Sig/Lala Route PRN Reason Start Time Stop Time Status Last Admin Dose Admin Acetaminophen (Tylenol) 650 mg Q4H PRN ORAL FEVER 08/08/16 15:45 09/07/16 15:44 Albuterol/ Ipratropium (DuoNeb 0.5-3(2.5)mg/3ml) 3 ml Q4H PRN HHN Shortness of Breath 08/08/16 15:45 08/13/16 15:44 Aspirin (ASA) 162 mg DAILY ORAL 08/09/16 09:00 09/08/16 08:59 08/11/16 09:18 Carvedilol (Coreg) 3.125 mg EVERY 12 HOURS ORAL 08/10/16 21:00 09/09/16 20:59 08/11/16 09:17 Cefazolin Sodium/ Dextrose (Ancef/D5W) 55 ml @ 110 mls/hr Q8HR IV 08/09/16 15:00 08/16/16 14:59 08/11/16 13:49 Dextrose STAT PRN IV Hypoglycemia 08/08/16 15:45 09/07/16 15:44 Digoxin (Lanoxin) 0.125 mg DAILY ORAL 08/10/16 09:00 09/09/16 08:59 08/11/16 09:17 Diltiazem HCl (Cardizem) 10 mg Q1H PRN IV HR > 120 08/08/16 15:45 09/07/16 15:44 Furosemide (Lasix) 40 mg EVERY 12 HOURS IV 08/09/16 21:00 09/08/16 20:59 08/11/16 09:17 Lisinopril (Zestril) 2.5 mg DAILY ORAL 08/10/16 09:00 09/09/16 08:59 08/11/16 09:18 Nitroglycerin (Ntg) 0.4 mg Q5MIN X 3 DOSES PRN SL Prn Chest Pain 08/08/16 15:45 09/07/16 15:44 Ondansetron HCl (Zofran) 4 mg Q6H PRN IVP Nausea & Vomiting 08/08/16 15:45 09/07/16 15:44 Pantoprazole (Protonix) 40 mg DAILY ORAL 08/09/16 09:00 09/08/16 08:59 08/11/16 09:17 Polyethylene Glycol (Miralax) 17 gm DAILYPRN PRN ORAL Constipation 08/08/16 15:45 09/07/16 15:44 Quetiapine Fumarate (SEROquel) 50 mg BEDTIME ORAL 08/09/16 21:00 09/08/16 20:59 08/10/16 20:21 Rivaroxaban (Xarelto) 15 mg QPM ORAL 08/10/16 15:00 09/09/16 14:59 08/11/16 15:54 Spironolactone (Aldactone) 25 mg DAILY ORAL 08/10/16 09:00 09/09/16 08:59 08/11/16 09:17 Temazepam (Restoril) 15 mg HSPRN PRN ORAL Insomnia 08/08/16 15:45 08/15/16 15:44 Zoraida Mazariegos NP (Vanchtein) Aug 11, 2016 16:17
[2016-08-11 20:00] VITALS: BP 105/64
--- NOTE | 2016-08-11 21:15 | Consultation ---
DATE OF CONSULTATION: 08/11/2016 INFECTIOUS DISEASE CONSULTATION: CONSULTING PHYSICIAN: Galo Perkins M.D. REFERRING PHYSICIAN: Hallie Tiwari M.D. REASON FOR CONSULTATION: Evaluation of the patient with bilateral lower extremity cellulitis. HISTORY OF PRESENT ILLNESS: The patient is a 71-year-old female with multiple medical problems, who has been admitted to this medical center due to shortness of breath, bilateral lower extremity cellulitis, erythema, and bilateral leg cellulitis. Infectious Disease consultation has been requested for further evaluation of the patient and antibiotic management. Currently, the patient has been started on IV Ancef. PAST MEDICAL HISTORY: 1. History of pacemaker placement. 2. History of congestive heart failure. 3. History of right hip fracture. 4. History of deep venous thrombosis, status post inferior vena cava filter placement. 5. History of hypertension. 6. History of bipolar disease and schizophrenia. 7. History of chronic obstructive pulmonary disease. 8. History of obesity. 9. Renal insufficiency. ALLERGIES: No known drug allergies. MEDICATIONS: IV Ancef. SOCIAL HISTORY: Ex-smoker. FAMILY HISTORY: Noncontributory. REVIEW OF SYSTEMS: A 10-point review was done and except what is mentioned has been negative. PHYSICAL EXAMINATION: VITAL SIGNS: Temperature is 97 degrees, blood pressure 130/70, pulse 86, and respiratory rate 18. HEENT: Mild pale conjunctivae. No icterus. NECK: No lymphadenopathy. CHEST: Coarse breathing sounds. HEART: S1 and S2. ABDOMEN: Soft and nontender. EXTREMITIES: Bilateral lower extremity edema and erythema (The patient's chart and the pictures were reviewed). At the time of exam, the patient's bilateral lower extremity has been wrapped. NEUROLOGICAL: Awake and alert. LABORATORY DATA: White blood cells 2 and hemoglobin 9.1. UA is unremarkable. BUN is 27 and creatinine 1.3. ALT, AST, and alkaline phosphatase are unremarkable. CRP is 0.8. DIAGNOSTIC DATA: Lower extremity arterial Doppler, no evidence of significant stenosis or occlusion. Venous Doppler, no DVT. Chest x-ray is unremarkable. ASSESSMENT AND PLAN: 1. The patient is a 71-year-old female with multiple medical problems, who has bilateral lower extremity cellulitis. Podiatry is following. The patient has been started on intravenous Ancef and it appears that in the last few days, the erythema has improved, so we will continue with current antibiotic treatment and we will continue the patient on intravenous Ancef. 2. Monitor BNP. 3. Monitor urine culture. 4. Wound cultures are growing Gram-negative tianna, but it appears to be just a colonizer and is responding to the current antibiotics. Thank you, Dr. Tiwari for allowing me to participate in the care of this patient. I will follow the patient with you during this hospitalization. Galo Perkins M.D. DR: Constantino JOB#: [id number] CC:
[2016-08-12] VITALS: BP 98/56
[2016-08-12 04:00] VITALS: BP 100/58
[2016-08-12] MEDS: ceFAZolin sod 0.5 GM in D5W 55 ML IV SCH (05:15)
[2016-08-12 07:20] LABS: MEAN CORPUSCULAR HEMOGLOBIN 29.7 PG (27.0-31.0); MEAN CORPUSCULAR HGB CONC 32.2 G/DL (32.0-36.0); MEAN CORPUSCULAR VOLUME 92 FL (80-99); MEAN PLATELET VOLUME 11.9 FL (6.5-10.1); PLATELET COUNT 93 K/UL (150-450); RED BLOOD COUNT 4.91 M/UL (4.20-5.40); RED CELL DISTRIBUTION WIDTH 15.3 % (11.6-14.8); WHITE BLOOD COUNT 2.8 K/UL (4.8-10.8)
[2016-08-12 07:34] LABS: PROTHROMBIN TIME 10.8 SEC (9.30-11.50)
[2016-08-12 07:35] LABS: ALANINE AMINOTRANSFERASE 19 U/L (3-33); ALBUMIN/GLOBULIN RATIO 1.2 (1.0-2.7); ANION GAP 10 (5-15); ASPARTATE AMINO TRANSFERASE 26 U/L (5-40); CALCIUM 8.4 mg/dL (8.6-10.2); CARBON DIOXIDE 36 mEQ/L (20-30); CHLORIDE 96 mEQ/L (98-107); HEMOLYSIS 4; POTASSIUM 3.7 mEQ/L (3.4-4.9); SODIUM 142 mEQ/L (135-145); TOTAL PROTEIN 5.4 g/dL (6.6-8.7)
[2016-08-12 07:39] VITALS: BP 99/57
--- NOTE | 2016-08-12 08:28 | Diagnostic Imaging Report ---
Indications: Altered mental status Technique: Spiral acquisitions obtained through the brain. Angled axial and coronal 5 x 5 mm slices were reconstructed. Total dose length product 1298 mGycm. CTDI vol(s) 70 mGy. Dose reduction achieved using automated exposure control Comparison: 05/21/2010 Findings: Again demonstrated is age-related enlargement of the ventricles and extra-axial CSF spaces. There is minimal periventricular deep white matter chronic ischemic change. There is a small right frontal deep white matter lacunar infarct, which was also evident previously although slightly more conspicuous currently. No acute hemorrhage or edema. No mass effect or midline shift. Otherwise normal ayon-white differentiation. Visualized orbits are unremarkable. The calvarium is intact. The sinuses are clear. There is some sclerosis of the left mastoids, suggesting chronic left mastoid disease. 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 No significant interim change. Impression: Chronic and age-related changes. 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
[2016-08-12] MEDS: Lisinopril 2.5mg tab ORAL SCH (09:00)
[2016-08-12] MEDS: Spironolactone 25mg tab ORAL SCH (09:52)
[2016-08-12] MEDS: Digoxin 0.125mg tab ORAL SCH (10:00)
[2016-08-12] MEDS: Aspirin Baby 81mg ORAL SCH (10:00)
[2016-08-12 10:39] LABS: BAND NEUTROPHILS % (MANUAL) 2 % (0-8); BASOPHILS % (MANUAL) 0 % (0-2); EOSINOPHILS % (MANUAL) 0 % (0-3); LYMPHOCYTES % (MANUAL) 31 % (20-45); NEUTROPHILS % (MANUAL) 48 % (45-75); PLATELET ESTIMATE DECREASED; PLATELET MORPHOLOGY NORMAL; TOTAL CELLS COUNTED 100
[2016-08-12 10:40] LABS: ANISOCYTOSIS 1+
--- NOTE | 2016-08-12 11:11 | Infectious Diseases Prog Note ---
Assessment/Plan Assessment/Plan A; Bilateral leg cellulitis Acute renal failure Systolic CHF PAF HPN P; Change cefazolin to Zosyn Subjective ROS Limited/Unobtainable: No Constitutional: Reports: no symptoms Respiratory: Reports: no symptoms Cardiovascular: Reports: no symptoms Genitourinary: Reports: no symptoms Musculoskeletal: Reports: no symptoms Allergies: Coded Allergies: No Known Allergies (Verified Allergy, Unknown, 03/05/10) Objective Vital Signs Last 24 Hour Vital Signs Date Time Temp Pulse Resp B/P Pulse Ox O2 Delivery O2 Flow Rate FiO2 08/12/16 10:00 90 08/12/16 07:39 97.5 97 18 99/57 96 Room Air 08/12/16 04:00 97.2 100 20 100/58 Room Air 08/12/16 04:00 93 08/12/16 00:00 83 08/12/16 00:00 97.7 89 20 98/56 95 Room Air 08/11/16 22:16 104 105/64 08/11/16 20:00 94 08/11/16 20:00 97.6 104 20 105/64 96 Room Air 21 08/11/16 19:07 92 20 Room Air 08/11/16 16:00 101 08/11/16 15:19 97.6 103 18 141/77 96 Room Air 08/11/16 12:00 98 08/11/16 11:31 97.7 114 18 130/70 95 Room Air Height (Feet): 5 Height (Inches): 3.00 Weight (Pounds): 168 General Appearance: no acute distress HEENT: mucous membranes moist Respiratory/Chest: lungs clear Cardiovascular: normal rate, pacemaker/AICD Abdomen: soft, non tender Extremities: other - edema of legs Neurologic/Psychiatric: alert, responsive Microbiology Date/Time Source Procedure Growth Status 08/09/16 22:20 Urine,Clean Catch Urine Culture - Final Mixed Gram Positive Organism Complete 08/09/16 17:30 Foot Left Gram Stain - Final Complete 08/09/16 17:30 Wound Culture - Final Serratia Odorifera 1 Enterococcus Faecalis Complete Laboratory Tests Test 08/12/16 06:00 White Blood Count 2.8 K/UL (4.8-10.8) L Red Blood Count 4.91 M/UL (4.20-5.40) Hemoglobin 14.6 G/DL (12.0-16.0) Hematocrit 45.3 % (37.0-47.0) Mean Corpuscular Volume 92 FL (80-99) Mean Corpuscular Hemoglobin 29.7 PG (27.0-31.0) Mean Corpuscular Hemoglobin Concent 32.2 G/DL (32.0-36.0) Red Cell Distribution Width 15.3 % (11.6-14.8) H Platelet Count 93 K/UL (150-450) L Mean Platelet Volume 11.9 FL (6.5-10.1) H Neutrophils (%) (Auto) % (45.0-75.0) Lymphocytes (%) (Auto) % (20.0-45.0) Monocytes (%) (Auto) % (1.0-10.0) Eosinophils (%) (Auto) % (0.0-3.0) Basophils (%) (Auto) % (0.0-2.0) Differential Total Cells Counted 100 Neutrophils % (Manual) 48 % (45-75) Lymphocytes % (Manual) 31 % (20-45) Monocytes % (Manual) 19 % (1-10) H Eosinophils % (Manual) 0 % (0-3) Basophils % (Manual) 0 % (0-2) Band Neutrophils 2 % (0-8) Platelet Estimate Decreased L Platelet Morphology Normal Anisocytosis 1+ Prothrombin Time 10.8 SEC (9.30-11.50) Prothromb Time International Ratio 1.0 (0.9-1.1) Sodium Level 142 mEQ/L (135-145) Potassium Level 3.7 mEQ/L (3.4-4.9) Chloride Level 96 mEQ/L (98-107) L Carbon Dioxide Level 36 mEQ/L (20-30) H Anion Gap 10 (5-15) Blood Urea Nitrogen 22 mg/dL (7-23) Creatinine 1.0 mg/dL (0.5-0.9) H Estimat Glomerular Filtration Rate mL/min (>60) Glucose Level 97 mg/dL (74-106) Calcium Level 8.4 mg/dL (8.6-10.2) L Total Bilirubin 0.2 mg/dL (0.0-1.2) Aspartate Amino Transf (AST/SGOT) 26 U/L (5-40) Alanine Aminotransferase (ALT/SGPT) 19 U/L (3-33) Alkaline Phosphatase 62 U/L (35-104) Total Protein 5.4 g/dL (6.6-8.7) L Albumin 3.0 g/dL (3.5-5.2) L Globulin 2.4 g/dL Albumin/Globulin Ratio 1.2 (1.0-2.7) HIV (1&2) Antibody Rapid Negative (NEGATIVE) Current Medications Medications (Trade) Dose Ordered Sig/Lala Route PRN Reason Start Time Stop Time Status Last Admin Dose Admin Acetaminophen (Tylenol) 650 mg Q4H PRN ORAL FEVER 08/08/16 15:45 09/07/16 15:44 Albuterol/ Ipratropium (DuoNeb 0.5-3(2.5)mg/3ml) 3 ml Q4H PRN HHN Shortness of Breath 08/08/16 15:45 08/13/16 15:44 Aspirin (ASA) 162 mg DAILY ORAL 08/09/16 09:00 09/08/16 08:59 08/12/16 10:00 Carvedilol (Coreg) 3.125 mg EVERY 12 HOURS ORAL 08/10/16 21:00 09/09/16 20:59 08/11/16 22:16 Cefazolin Sodium/ Dextrose (Ancef/D5W) 55 ml @ 110 mls/hr Q8HR IV 08/09/16 15:00 08/16/16 14:59 08/12/16 05:15 Dextrose STAT PRN IV Hypoglycemia 08/08/16 15:45 09/07/16 15:44 Digoxin (Lanoxin) 0.125 mg DAILY ORAL 08/10/16 09:00 09/09/16 08:59 08/12/16 10:00 Diltiazem HCl (Cardizem) 10 mg Q1H PRN IV HR > 120 08/08/16 15:45 09/07/16 15:44 Furosemide (Lasix) 40 mg EVERY 12 HOURS IV 08/09/16 21:00 09/08/16 20:59 08/12/16 09:52 Lisinopril (Zestril) 2.5 mg DAILY ORAL 08/10/16 09:00 09/09/16 08:59 08/11/16 09:18 Nitroglycerin (Ntg) 0.4 mg Q5MIN X 3 DOSES PRN SL Prn Chest Pain 08/08/16 15:45 09/07/16 15:44 Ondansetron HCl (Zofran) 4 mg Q6H PRN IVP Nausea & Vomiting 08/08/16 15:45 09/07/16 15:44 Pantoprazole (Protonix) 40 mg DAILY ORAL 08/09/16 09:00 09/08/16 08:59 08/12/16 09:59 Polyethylene Glycol (Miralax) 17 gm DAILYPRN PRN ORAL Constipation 08/08/16 15:45 09/07/16 15:44 Quetiapine Fumarate (SEROquel) 50 mg BEDTIME ORAL 08/09/16 21:00 09/08/16 20:59 08/11/16 22:17 Rivaroxaban (Xarelto) 15 mg QPM ORAL 08/10/16 15:00 09/09/16 14:59 08/11/16 15:54 Spironolactone (Aldactone) 25 mg DAILY ORAL 08/10/16 09:00 09/09/16 08:59 08/12/16 09:52 Temazepam (Restoril) 15 mg HSPRN PRN ORAL Insomnia 08/08/16 15:45 08/15/16 15:44 DHAVAL MIRAMONTES Aug 12, 2016 11:11
[2016-08-12 11:18] VITALS: BP 102/68
--- NOTE | 2016-08-12 11:50 | Pulmonology Progress Note ---
Assessment/Plan Assessment/Plan ASSESSMENT acute on chronic systolic HF SOB likely 2 to acute on chronic SHF dilated cardiomyopathy PAF CAD ICD Hx of DVT, s/p IVC filter mild pulmonary HTN cellulitis BLE peripheral edema bipolar disorder with cognitive impairment possible vascular dementia polycythemia leukopenia thrombocytopenia onychomycosis callus R foot hypokalemia PLAN OF CARE on tele O2 HHN prn pulse oximetry currently stable on RA CXR with CM, no acute findings ECHO with EF 20-25% and RVS of 41 c/w mild pulmonary HTN medical management of SHF with BB, Digoxin, low dose CHAD and diuretics: Lasix and Aldactone monitor I/I, renal parameters, lytes K stable after replacement cardio and cardio EP follow s/p re-integration of IVC- normal fx a/coagulation with Xarelto ( for PAF and hx of DVT), abx, ID follows wound cx - contaminant as per ID Venous Duplex BLE negative s/p IVC filter Arterial Duplex no evidence of stenosis or occlusion neuro follows , possible vascular dementia, recommended CT head psych eval noted, per psych started on Seroquel for bipolar disorder with cognitive impairment e mail system administrator seen and evaluated s/p I&D on the bedside for blisters, debridement of toe nails bilaterally and R callus wound care as per e mail system administrator recommendation continue current treatment with painting the areas of blisters with betadine and wrapping legs with chad wrap watch WBC and PLT count transfer to [place] if OK with cardio case discussed and evaluated by supervising physician Subjective Allergies: Coded Allergies: No Known Allergies (Verified Allergy, Unknown, 03/05/10) Subjective still leukopenic, but with small trend up, afebrile on RA pulse ox stable, no signs of respiratory distress denies CP, SOB K stable after replacement PLTstill low creat-down to normal Objective Last 24 Hour Vital Signs Date Time Temp Pulse Resp B/P Pulse Ox O2 Delivery O2 Flow Rate FiO2 08/12/16 11:18 97.7 92 18 102/68 97 Room Air 08/12/16 10:00 90 08/12/16 08:00 84 08/12/16 07:39 97.5 97 18 99/57 96 Room Air 08/12/16 04:00 97.2 100 20 100/58 Room Air 08/12/16 04:00 93 08/12/16 00:00 83 08/12/16 00:00 97.7 89 20 98/56 95 Room Air 08/11/16 22:16 104 105/64 08/11/16 20:00 94 08/11/16 20:00 97.6 104 20 105/64 96 Room Air 21 08/11/16 19:07 92 20 Room Air 08/11/16 16:00 101 08/11/16 15:19 97.6 103 18 141/77 96 Room Air 08/11/16 12:00 98 Intake and Output 08/11/16 08/12/16 19:00 07:00 Intake Total 1190 ml Output Total 2200 ml 700 ml Balance -1010 ml -700 ml Intake Oral 1080 ml IV Total 110 ml Output Urine Total 2200 ml 700 ml # Bowel Movements 1 3 Objective General Appearance: no acute distress, alert HEENT: normocephalic, atraumatic, anicteric Respiratory/Chest: chest wall non-tender, no accessory muscle use, decreased breath sounds, L chest AICD Cardiovascular: normal rate, no gallop/murmur, regular Abdomen: normal bowel sounds, soft, non tender Extremities: both legs wrapped with Chad Wrap, +3 R leg edema ; +2 L leg edema Neurologic/Psychiatric: alert Microbiology Date/Time Source Procedure Growth Status 08/09/16 22:20 Urine,Clean Catch Urine Culture - Final Mixed Gram Positive Organism Complete 08/09/16 17:30 Foot Left Gram Stain - Final Complete 08/09/16 17:30 Wound Culture - Final Serratia Odorifera 1 Enterococcus Faecalis Complete Laboratory Tests 08/12/16 06:00: White Blood Count 2.8L, Red Blood Count 4.91, Hemoglobin 14.6, Hematocrit 45.3, Mean Corpuscular Volume 92, Mean Corpuscular Hemoglobin 29.7, Mean Corpuscular Hemoglobin Concent 32.2, Red Cell Distribution Width 15.3H, Platelet Count 93L, Mean Platelet Volume 11.9H, Neutrophils (%) (Auto) , Lymphocytes (%) (Auto) , Monocytes (%) (Auto) , Eosinophils (%) (Auto) , Basophils (%) (Auto) , Differential Total Cells Counted 100, Neutrophils % (Manual) 48, Lymphocytes % ( Manual) 31, Monocytes % (Manual) 19H, Eosinophils % (Manual) 0, Basophils % ( Manual) 0, Band Neutrophils 2, Platelet Estimate DecreasedL, Platelet Morphology Normal, Anisocytosis 1+, Prothrombin Time 10.8, Prothromb Time International Ratio 1.0, Sodium Level 142, Potassium Level 3.7, Chloride Level 96L, Carbon Dioxide Level 36H, Anion Gap 10, Blood Urea Nitrogen 22, Creatinine 1.0H, Estimat Glomerular Filtration Rate , Glucose Level 97, Calcium Level 8.4L , Total Bilirubin 0.2, Aspartate Amino Transf (AST/SGOT) 26, Alanine Aminotransferase (ALT/SGPT) 19, Alkaline Phosphatase 62, Total Protein 5.4L, Albumin 3.0L, Globulin 2.4, Albumin/Globulin Ratio 1.2, HIV (1&2) Antibody Rapid Negative Current Medications Medications (Trade) Dose Ordered Sig/Lala Route PRN Reason Start Time Stop Time Status Last Admin Dose Admin Acetaminophen (Tylenol) 650 mg Q4H PRN ORAL FEVER 08/08/16 15:45 09/07/16 15:44 Albuterol/ Ipratropium (DuoNeb 0.5-3(2.5)mg/3ml) 3 ml Q4H PRN HHN Shortness of Breath 08/08/16 15:45 08/13/16 15:44 Aspirin (ASA) 162 mg DAILY ORAL 08/09/16 09:00 09/08/16 08:59 08/12/16 10:00 Carvedilol (Coreg) 3.125 mg EVERY 12 HOURS ORAL 08/10/16 21:00 09/09/16 20:59 08/11/16 22:16 Dextrose (Dextrose 50%) STAT PRN IV Hypoglycemia 08/08/16 15:45 09/07/16 15:44 Digoxin (Lanoxin) 0.125 mg DAILY ORAL 08/10/16 09:00 09/09/16 08:59 08/12/16 10:00 Diltiazem HCl (Cardizem) 10 mg Q1H PRN IV HR > 120 08/08/16 15:45 09/07/16 15:44 Furosemide (Lasix) 40 mg EVERY 12 HOURS IV 08/09/16 21:00 09/08/16 20:59 08/12/16 09:52 Lisinopril (Zestril) 2.5 mg DAILY ORAL 08/10/16 09:00 09/09/16 08:59 08/11/16 09:18 Nitroglycerin (Ntg) 0.4 mg Q5MIN X 3 DOSES PRN SL Prn Chest Pain 08/08/16 15:45 09/07/16 15:44 Ondansetron HCl (Zofran) 4 mg Q6H PRN IVP Nausea & Vomiting 08/08/16 15:45 09/07/16 15:44 Pantoprazole (Protonix) 40 mg DAILY ORAL 08/09/16 09:00 09/08/16 08:59 08/12/16 09:59 Piperacillin Sod/ Tazobactam Sod/ Dextrose (Zosyn/D5W) 110 ml @ 27.5 mls/hr EVERY 8 HOURS IVPB 08/12/16 14:00 08/17/16 13:59 Polyethylene Glycol (Miralax) 17 gm DAILYPRN PRN ORAL Constipation 08/08/16 15:45 09/07/16 15:44 Quetiapine Fumarate (SEROquel) 50 mg BEDTIME ORAL 08/09/16 21:00 09/08/16 20:59 08/11/16 22:17 Rivaroxaban 15 mg 15 mg QPM ORAL 08/10/16 15:00 09/09/16 14:59 08/11/16 15:54 Spironolactone (Aldactone) 25 mg DAILY ORAL 08/10/16 09:00 09/09/16 08:59 08/12/16 09:52 Temazepam (Restoril) 15 mg HSPRN PRN ORAL Insomnia 08/08/16 15:45 08/15/16 15:44 Zoraida Mazariegos NP ([facility]) Aug 12, 2016 11:50
[2016-08-12] MEDS ORDERED: DuoNeb 0.5-3(2.5)mg/3ml neb HHN PRN (12:00)
[2016-08-12] MEDS: Piperacillin/Tazobactam 3.375 GM in D5W 110 ML IVPB SCH ×2 (13:17→22:32)
--- NOTE | 2016-08-12 14:01 | General Progress Note ---
Assessment/Plan Assessment/Plan CHF WITH HIGH BNP iv duuretics A FIB POOR HYGEINE will consider psychiatric consult bipolar vs paranoid schizophrenia wound infection with multiple organism on iv zosyn ck ua cs [facility] when once medically stable Subjective Allergies: Coded Allergies: No Known Allergies (Verified Allergy, Unknown, 03/05/10) Subjective 08/08/2016 patient with lives at home with afib not compliant with meds comes in with CHF 08/09/2016 she is more alert and follows commands .responds more appropiately 08/10 patient wants to be transfered to [facility] 08/11/2016 still on iv heparin more alrt and follows commands less SOB 08/12/2016 wound ir growing enterococus and serratia Objective Last 24 Hour Vital Signs Date Time Temp Pulse Resp B/P Pulse Ox O2 Delivery O2 Flow Rate FiO2 08/12/16 13:10 96 20 Room Air 08/12/16 12:00 85 08/12/16 11:18 97.7 92 18 102/68 97 Room Air 08/12/16 10:00 90 08/12/16 08:00 84 08/12/16 07:39 97.5 97 18 99/57 96 Room Air 08/12/16 04:00 97.2 100 20 100/58 Room Air 08/12/16 04:00 93 08/12/16 00:00 83 08/12/16 00:00 97.7 89 20 98/56 95 Room Air 08/11/16 22:16 104 105/64 08/11/16 20:00 94 08/11/16 20:00 97.6 104 20 105/64 96 Room Air 21 08/11/16 19:07 92 20 Room Air 08/11/16 16:00 101 08/11/16 15:19 97.6 103 18 141/77 96 Room Air Intake and Output 08/11/16 08/12/16 19:00 07:00 Intake Total 1190 ml Output Total 2200 ml 700 ml Balance -1010 ml -700 ml Intake Oral 1080 ml IV Total 110 ml Output Urine Total 2200 ml 700 ml # Bowel Movements 1 3 Laboratory Tests 08/12/16 06:00: White Blood Count 2.8L, Red Blood Count 4.91, Hemoglobin 14.6, Hematocrit 45.3, Mean Corpuscular Volume 92, Mean Corpuscular Hemoglobin 29.7, Mean Corpuscular Hemoglobin Concent 32.2, Red Cell Distribution Width 15.3H, Platelet Count 93L, Mean Platelet Volume 11.9H, Neutrophils (%) (Auto) , Lymphocytes (%) (Auto) , Monocytes (%) (Auto) , Eosinophils (%) (Auto) , Basophils (%) (Auto) , Differential Total Cells Counted 100, Neutrophils % (Manual) 48, Lymphocytes % ( Manual) 31, Monocytes % (Manual) 19H, Eosinophils % (Manual) 0, Basophils % ( Manual) 0, Band Neutrophils 2, Platelet Estimate DecreasedL, Platelet Morphology Normal, Anisocytosis 1+, Prothrombin Time 10.8, Prothromb Time International Ratio 1.0, Sodium Level 142, Potassium Level 3.7, Chloride Level 96L, Carbon Dioxide Level 36H, Anion Gap 10, Blood Urea Nitrogen 22, Creatinine 1.0H, Estimat Glomerular Filtration Rate , Glucose Level 97, Calcium Level 8.4L , Total Bilirubin 0.2, Aspartate Amino Transf (AST/SGOT) 26, Alanine Aminotransferase (ALT/SGPT) 19, Alkaline Phosphatase 62, Total Protein 5.4L, Albumin 3.0L, Globulin 2.4, Albumin/Globulin Ratio 1.2, HIV (1&2) Antibody Rapid Negative Height (Feet): 5 Height (Inches): 3.00 Weight (Pounds): 168 General Appearance: alert Cardiovascular: irregularly irregular Respiratory/Chest: chest wall non-tender Abdomen: normal bowel sounds, non tender, soft Objective skin is excoriated over bilat ext and has some pus over dorsum of the legs Marla Morse MD Aug 12, 2016 14:01
[2016-08-12 15:21] VITALS: BP 102/66
[2016-08-12] MEDS: Xarelto 15mg tab ORAL SCH (15:42)
[2016-08-12 20:00] VITALS: BP 108/70
[2016-08-13] VITALS: BP 93/62
[2016-08-13 04:00] VITALS: BP 99/70
[2016-08-13] MEDS: Piperacillin/Tazobactam 3.375 GM in D5W 110 ML IVPB SCH ×3 (05:30→22:00)
--- NOTE | 2016-08-13 07:00 | Cardiology Report ---
APPROVED REPORT EXAM: Two-dimensional and M-mode echocardiogram with Doppler and color Doppler. INDICATION LV function Four chamber enlargement. Global left ventricular severe hypokinesis. Left ventricular ejection fraction estimated to be 20-25 %. No evidence of left ventricular hypertrophy. Anterior Echo-free space, may be due to pericardial fat or effusion. Focal aortic valve sclerosis with adequate cusp excursion. Thickened mitral valve leaflets with normal excursion. Mitral annulus and aortic root calcification. Pulmonic valve not well visualized. Normal tricuspid valve structure. IVC at normal size and slightly collapsing with respiration. Pacemaker wire present in the right side chambers. A color flow and spectral Doppler study was performed and revealed: Trace aortic insufficiency. Moderate mitral regurgitation. Moderate tricuspid regurgitation. Tricuspid systolic velocities suggests peak right ventricular systolic pressure of 41 mmHg, consistent with mild pulmonary hypertension.
[2016-08-13 08:00] VITALS: BP 112/65
[2016-08-13 08:04] LABS: MEAN CORPUSCULAR HEMOGLOBIN 29.7 PG (27.0-31.0); MEAN CORPUSCULAR HGB CONC 32.2 G/DL (32.0-36.0); MEAN CORPUSCULAR VOLUME 92 FL (80-99); MEAN PLATELET VOLUME 12.3 FL (6.5-10.1); PLATELET COUNT 89 K/UL (150-450); RED BLOOD COUNT 4.81 M/UL (4.20-5.40); RED CELL DISTRIBUTION WIDTH 14.9 % (11.6-14.8); WHITE BLOOD COUNT 2.7 K/UL (4.8-10.8)
[2016-08-13] MEDS: Aspirin Baby 81mg ORAL SCH (08:20)
[2016-08-13] MEDS: Spironolactone 25mg tab ORAL SCH (08:20)
[2016-08-13] MEDS: Digoxin 0.125mg tab ORAL SCH (08:22)
[2016-08-13] MEDS: Lisinopril 2.5mg tab ORAL SCH (08:23)
[2016-08-13 08:26] LABS: ANION GAP 12 (5-15); CALCIUM 8.7 mg/dL (8.6-10.2); CARBON DIOXIDE 34 mEQ/L (20-30); CHLORIDE 96 mEQ/L (98-107); CREATININE 1.2 mg/dL (0.5-0.9); HEMOLYSIS 6; MAGNESIUM 1.6 mg/dL (1.7-2.5); POTASSIUM 3.7 mEQ/L (3.4-4.9); SODIUM 142 mEQ/L (135-145)
--- NOTE | 2016-08-13 09:56 | Infectious Diseases Prog Note ---
Assessment/Plan Assessment/Plan A: The patient is a 71-year-old female with Bilateral lower extremity cellulitis improving Wnd Cx : Serratia and Enterococcus ( ? Colonizer ) Lower extremity arterial Doppler, no evidence of significant stenosis or occlusion Venous Doppler, no DVT Urine culture: mixed GNR ( colonizer ) HIV : neg Leukopenia History of pacemaker placement. History of congestive heart failure History of right hip fracture. History of deep venous thrombosis, status post inferior vena cava filter placement. hypertension. bipolar disease and schizophrenia. chronic obstructive pulmonary disease. History of obesity. Renal insufficiency. PLAN: Cont pt on IV Zosyn d# / , upon DC will change to Bactrim and Augmentin to complete the course 08/12 SP Ancef d# 4 Monitor CBC Monitor BNP, BMP Subjective Constitutional: Denies: anorexia, chills, drenching sweats, fatigue, fever, no symptoms, other Allergies: Coded Allergies: No Known Allergies (Verified Allergy, Unknown, 03/05/10) Objective Vital Signs Last 24 Hour Vital Signs Date Time Temp Pulse Resp B/P Pulse Ox O2 Delivery O2 Flow Rate FiO2 08/13/16 08:47 100 18 Room Air 08/13/16 08:23 112/65 08/13/16 08:22 104 08/13/16 08:21 104 112/65 08/13/16 08:00 96.8 104 17 112/65 97 Room Air 08/13/16 04:00 98.6 102 18 99/70 95 Room Air 08/13/16 04:00 109 08/13/16 00:00 96.8 94 19 93/62 94 Room Air 08/13/16 00:00 107 08/12/16 21:00 58 108/70 08/12/16 20:00 99.0 58 19 108/70 93 Room Air 21 08/12/16 20:00 110 08/12/16 19:15 101 20 Room Air 08/12/16 16:00 97 08/12/16 15:21 98.4 95 18 102/66 95 Room Air 08/12/16 13:10 96 20 Room Air 08/12/16 12:00 85 08/12/16 11:18 97.7 92 18 102/68 97 Room Air 08/12/16 10:00 90 Height (Feet): 5 Height (Inches): 3.00 Weight (Pounds): 157 HEENT: anicteric Respiratory/Chest: normal breath sounds Cardiovascular: regularly irregular Abdomen: non distended Laboratory Tests Test 08/13/16 07:25 White Blood Count 2.7 K/UL (4.8-10.8) L Red Blood Count 4.81 M/UL (4.20-5.40) Hemoglobin 14.3 G/DL (12.0-16.0) Hematocrit 44.4 % (37.0-47.0) Mean Corpuscular Volume 92 FL (80-99) Mean Corpuscular Hemoglobin 29.7 PG (27.0-31.0) Mean Corpuscular Hemoglobin Concent 32.2 G/DL (32.0-36.0) Red Cell Distribution Width 14.9 % (11.6-14.8) H Platelet Count 89 K/UL (150-450) L Mean Platelet Volume 12.3 FL (6.5-10.1) H Neutrophils (%) (Auto) % (45.0-75.0) Lymphocytes (%) (Auto) % (20.0-45.0) Monocytes (%) (Auto) % (1.0-10.0) Eosinophils (%) (Auto) % (0.0-3.0) Basophils (%) (Auto) % (0.0-2.0) Neutrophils % (Manual) Pending Lymphocytes % (Manual) Pending Platelet Estimate Pending Platelet Morphology Pending Sodium Level 142 mEQ/L (135-145) Potassium Level 3.7 mEQ/L (3.4-4.9) Chloride Level 96 mEQ/L (98-107) L Carbon Dioxide Level 34 mEQ/L (20-30) H Anion Gap 12 (5-15) Blood Urea Nitrogen 28 mg/dL (7-23) H Creatinine 1.2 mg/dL (0.5-0.9) H Estimat Glomerular Filtration Rate mL/min (>60) Glucose Level 153 mg/dL (74-106) H Calcium Level 8.7 mg/dL (8.6-10.2) Magnesium Level 1.6 mg/dL (1.7-2.5) L Current Medications Medications (Trade) Dose Ordered Sig/Lala Route PRN Reason Start Time Stop Time Status Last Admin Dose Admin Acetaminophen (Tylenol) 650 mg Q4H PRN ORAL FEVER 5/31/17 15:45 09/07/16 15:44 Albuterol/ Ipratropium (DuoNeb 0.5-3(2.5)mg/3ml) 3 ml Q4H PRN HHN Shortness of Breath 08/12/16 12:00 08/17/16 11:59 Aspirin (ASA) 162 mg DAILY ORAL 08/09/16 09:00 09/08/16 08:59 08/13/16 08:20 Carvedilol (Coreg) 3.125 mg EVERY 12 HOURS ORAL 08/10/16 21:00 09/09/16 20:59 08/13/16 08:21 Dextrose (Dextrose 50%) STAT PRN IV Hypoglycemia 08/08/16 15:45 09/07/16 15:44 Digoxin (Lanoxin) 0.125 mg DAILY ORAL 08/10/16 09:00 09/09/16 08:59 08/13/16 08:22 Diltiazem HCl (Cardizem) 10 mg Q1H PRN IV HR > 120 08/08/16 15:45 09/07/16 15:44 Furosemide (Lasix) 40 mg EVERY 12 HOURS IV 08/09/16 21:00 09/08/16 20:59 08/13/16 08:20 Lisinopril (Zestril) 2.5 mg DAILY ORAL 08/10/16 09:00 09/09/16 08:59 08/13/16 08:23 Nitroglycerin (Ntg) 0.4 mg Q5MIN X 3 DOSES PRN SL Prn Chest Pain 08/08/16 15:45 09/07/16 15:44 Ondansetron HCl (Zofran) 4 mg Q6H PRN IVP Nausea & Vomiting 08/08/16 15:45 09/07/16 15:44 Pantoprazole (Protonix) 40 mg DAILY ORAL 08/09/16 09:00 09/08/16 08:59 08/13/16 08:22 Piperacillin Sod/ Tazobactam Sod/ Dextrose (Zosyn/D5W) 110 ml @ 27.5 mls/hr EVERY 8 HOURS IVPB 08/12/16 14:00 08/17/16 13:59 08/13/16 05:30 Polyethylene Glycol (Miralax) 17 gm DAILYPRN PRN ORAL Constipation 08/08/16 15:45 09/07/16 15:44 Quetiapine Fumarate (SEROquel) 50 mg BEDTIME ORAL 08/09/16 21:00 09/08/16 20:59 08/12/16 21:12 Rivaroxaban 15 mg 15 mg QPM ORAL 08/10/16 15:00 09/09/16 14:59 08/12/16 15:42 Spironolactone (Aldactone) 25 mg DAILY ORAL 08/10/16 09:00 09/09/16 08:59 08/13/16 08:20 Temazepam (Restoril) 15 mg HSPRN PRN ORAL Insomnia 08/08/16 15:45 08/15/16 15:44 TIMO GRESHAM M.D. Aug 13, 2016 09:56
[2016-08-13 10:09] LABS: BAND NEUTROPHILS % (MANUAL) 0 % (0-8); BASOPHILS % (MANUAL) 0 % (0-2); EOSINOPHILS % (MANUAL) 1 % (0-3); LYMPHOCYTES % (MANUAL) 28 % (20-45); NEUTROPHILS % (MANUAL) 66 % (45-75); TOTAL CELLS COUNTED 100
[2016-08-13 10:10] LABS: ANISOCYTOSIS 1+; PLATELET ESTIMATE DECREASED; PLATELET MORPHOLOGY NORMAL
[2016-08-13 12:00] VITALS: BP 100/55
[2016-08-13] MEDS ORDERED: SEROQUEL25 MG ORAL (12:44)
[2016-08-13] MEDS ORDERED: XARELTO15 MG ORAL (12:44)
[2016-08-13] MEDS ORDERED: FUROSEMIDE40 MG ORAL (12:44)
[2016-08-13] MEDS ORDERED: COREG3.125 MG ORAL (12:44)
[2016-08-13] MEDS ORDERED: BACTRIM DOUBLE S1 E1 ORAL (12:45)
[2016-08-13] MEDS ORDERED: AUGMENTIN 875-1 EAC1 ORAL (12:46)
--- NOTE | 2016-08-13 12:48 | Pulmonology Progress Note ---
Assessment/Plan Problems: (1) Acute respiratory failure (2) Peripheral edema (3) Cellulitis (4) ICD (implantable cardioverter-defibrillator) in place (5) CAD (coronary artery disease) Assessment/Plan IV antibiotic on ancef diuretics, Lasix IV bid psych and neuro evaluation ICD was interrogated on Xarelto dc to half-way with recommendations of ID for abx change laxix to po Subjective ROS Limited/Unobtainable: No Constitutional: Reports: no symptoms HEENT: Repors: no symptoms Allergies: Coded Allergies: No Known Allergies (Verified Allergy, Unknown, 03/05/10) Objective Last 24 Hour Vital Signs Date Time Temp Pulse Resp B/P Pulse Ox O2 Delivery O2 Flow Rate FiO2 08/13/16 08:47 100 18 Room Air 21 08/13/16 08:23 112/65 08/13/16 08:22 104 08/13/16 08:21 104 112/65 08/13/16 08:00 96.8 104 17 112/65 97 Room Air 08/13/16 08:00 94 08/13/16 04:00 98.6 102 18 99/70 95 Room Air 21 08/13/16 04:00 109 08/13/16 00:00 96.8 94 19 93/62 94 Room Air 08/13/16 00:00 107 08/12/16 21:00 58 108/70 08/12/16 20:00 99.0 58 19 108/70 93 Room Air 21 08/12/16 20:00 110 08/12/16 19:15 101 20 Room Air 08/12/16 16:00 97 08/12/16 15:21 98.4 95 18 102/66 95 Room Air 08/12/16 13:10 96 20 Room Air Intake and Output 08/12/16 08/13/16 19:00 07:00 Intake Total 1350.0 ml 377.5 ml Output Total 1950 ml 1750 ml Balance -600.0 ml -1372.5 ml Intake Oral 1240 ml 240 ml IV Total 110.0 ml 137.5 ml Output Urine Total 1950 ml 1750 ml # Bowel Movements 3 General Appearance: WD/WN HEENT: atraumatic Respiratory/Chest: chest wall non-tender, lungs clear Cardiovascular: normal peripheral pulses, normal rate Abdomen: normal bowel sounds, soft, non tender Extremities: no cyanosis, no clubbing Skin: no ulcers Neurologic/Psychiatric: director writing II-XII grossly normal Lymphatic: no neck adenopathy Laboratory Tests 08/13/16 07:25: White Blood Count 2.7L, Red Blood Count 4.81, Hemoglobin 14.3, Hematocrit 44.4, Mean Corpuscular Volume 92, Mean Corpuscular Hemoglobin 29.7, Mean Corpuscular Hemoglobin Concent 32.2, Red Cell Distribution Width 14.9H, Platelet Count 89L, Mean Platelet Volume 12.3H, Neutrophils (%) (Auto) , Lymphocytes (%) (Auto) , Monocytes (%) (Auto) , Eosinophils (%) (Auto) , Basophils (%) (Auto) , Differential Total Cells Counted 100, Neutrophils % (Manual) 66, Lymphocytes % ( Manual) 28, Monocytes % (Manual) 5, Eosinophils % (Manual) 1, Basophils % ( Manual) 0, Band Neutrophils 0, Platelet Estimate DecreasedL, Platelet Morphology Normal, Anisocytosis 1+, Sodium Level 142, Potassium Level 3.7, Chloride Level 96L, Carbon Dioxide Level 34H, Anion Gap 12, Blood Urea Nitrogen 28H, Creatinine 1.2H, Estimat Glomerular Filtration Rate , Glucose Level 153H, Calcium Level 8.7, Magnesium Level 1.6L Current Medications Medications (Trade) Dose Ordered Sig/Lala Route PRN Reason Start Time Stop Time Status Last Admin Dose Admin Acetaminophen (Tylenol) 650 mg Q4H PRN ORAL FEVER 08/08/16 15:45 09/07/16 15:44 Albuterol/ Ipratropium (DuoNeb 0.5-3(2.5)mg/3ml) 3 ml Q4H PRN HHN Shortness of Breath 08/12/16 12:00 08/17/16 11:59 Aspirin (ASA) 162 mg DAILY ORAL 08/09/16 09:00 09/08/16 08:59 08/13/16 08:20 Carvedilol (Coreg) 3.125 mg EVERY 12 HOURS ORAL 08/10/16 21:00 09/09/16 20:59 08/13/16 08:21 Dextrose (Dextrose 50%) STAT PRN IV Hypoglycemia 08/08/16 15:45 09/07/16 15:44 Digoxin (Lanoxin) 0.125 mg DAILY ORAL 08/10/16 09:00 09/09/16 08:59 08/13/16 08:22 Diltiazem HCl (Cardizem) 10 mg Q1H PRN IV HR > 120 08/08/16 15:45 09/07/16 15:44 Furosemide (Lasix) 40 mg EVERY 12 HOURS IV 08/09/16 21:00 09/08/16 20:59 08/13/16 08:20 Lisinopril (Zestril) 2.5 mg DAILY ORAL 08/10/16 09:00 09/09/16 08:59 08/13/16 08:23 Nitroglycerin (Ntg) 0.4 mg Q5MIN X 3 DOSES PRN SL Prn Chest Pain 08/08/16 15:45 09/07/16 15:44 Ondansetron HCl (Zofran) 4 mg Q6H PRN IVP Nausea & Vomiting 08/08/16 15:45 09/07/16 15:44 Pantoprazole (Protonix) 40 mg DAILY ORAL 08/09/16 09:00 09/08/16 08:59 08/13/16 08:22 Piperacillin Sod/ Tazobactam Sod/ Dextrose (Zosyn/D5W) 110 ml @ 27.5 mls/hr EVERY 8 HOURS IVPB 08/12/16 14:00 08/17/16 13:59 08/13/16 05:30 Polyethylene Glycol (Miralax) 17 gm DAILYPRN PRN ORAL Constipation 08/08/16 15:45 09/07/16 15:44 Quetiapine Fumarate (SEROquel) 50 mg BEDTIME ORAL 08/09/16 21:00 09/08/16 20:59 08/12/16 21:12 Rivaroxaban 15 mg 15 mg QPM ORAL 08/10/16 15:00 09/09/16 14:59 08/12/16 15:42 Spironolactone (Aldactone) 25 mg DAILY ORAL 08/10/16 09:00 09/09/16 08:59 08/13/16 08:20 Temazepam (Restoril) 15 mg HSPRN PRN ORAL Insomnia 08/08/16 15:45 08/15/16 15:44 SKYLER NOGUERA Aug 13, 2016 12:48
[2016-08-13] MEDS ORDERED: ALDACTONE25 MG ORAL (15:36)
[2016-08-13 16:00] VITALS: BP 111/70
--- NOTE | 2016-08-13 16:08 | Cardiac Electrophysiology PN ---
Assessment/Plan Assessment/Plan 1. Status post [facility] [facility] defibrillator implantation with showed Nl Fx. Battery more than 2 years. 2. Severe cardiomyopathy EF 20-25%. Continue digoxin, Coreg, Lasix 40 mg IV b.i.d., lisinopril 2.5 and Aldactone 25 daily 3. Paroxysmal atrial fibrillation. On Dig, Coreg and Xarelto 15 daily. 4. Deep vein thrombosis, status post inferior vena cava filter.On Xarelto 5. History of hip fracture, status post open reduction and internal fixation. 6. Mild cognitive impairment with memory loss. Follow up by Dr. Chapa. MELINDA RN Subjective Subjective On IV Lasix. No chest pain or SOB.On Xarelto 15 mg daily. Objective Last 24 Hour Vital Signs Date Time Temp Pulse Resp B/P Pulse Ox O2 Delivery O2 Flow Rate FiO2 08/13/16 12:00 97.7 87 20 100/55 97 Room Air 08/13/16 12:00 93 08/13/16 08:47 100 18 Room Air 21 08/13/16 08:23 112/65 08/13/16 08:22 104 08/13/16 08:21 104 112/65 08/13/16 08:00 96.8 104 17 112/65 97 Room Air 08/13/16 08:00 94 08/13/16 04:00 98.6 102 18 99/70 95 Room Air 21 08/13/16 04:00 109 08/13/16 00:00 96.8 94 19 93/62 94 Room Air 21 08/13/16 00:00 107 08/12/16 21:00 58 108/70 08/12/16 20:00 99.0 58 19 108/70 93 Room Air 21 08/12/16 20:00 110 08/12/16 19:15 101 20 Room Air Intake and Output 08/12/16 08/13/16 19:00 07:00 Intake Total 1350.0 ml 377.5 ml Output Total 1950 ml 1750 ml Balance -600.0 ml -1372.5 ml Intake Oral 1240 ml 240 ml IV Total 110.0 ml 137.5 ml Output Urine Total 1950 ml 1750 ml # Bowel Movements 3 Laboratory Tests Test 08/13/16 07:25 White Blood Count 2.7 K/UL (4.8-10.8) L Red Blood Count 4.81 M/UL (4.20-5.40) Hemoglobin 14.3 G/DL (12.0-16.0) Hematocrit 44.4 % (37.0-47.0) Mean Corpuscular Volume 92 FL (80-99) Mean Corpuscular Hemoglobin 29.7 PG (27.0-31.0) Mean Corpuscular Hemoglobin Concent 32.2 G/DL (32.0-36.0) Red Cell Distribution Width 14.9 % (11.6-14.8) H Platelet Count 89 K/UL (150-450) L Mean Platelet Volume 12.3 FL (6.5-10.1) H Neutrophils (%) (Auto) % (45.0-75.0) Lymphocytes (%) (Auto) % (20.0-45.0) Monocytes (%) (Auto) % (1.0-10.0) Eosinophils (%) (Auto) % (0.0-3.0) Basophils (%) (Auto) % (0.0-2.0) Differential Total Cells Counted 100 Neutrophils % (Manual) 66 % (45-75) Lymphocytes % (Manual) 28 % (20-45) Monocytes % (Manual) 5 % (1-10) Eosinophils % (Manual) 1 % (0-3) Basophils % (Manual) 0 % (0-2) Band Neutrophils 0 % (0-8) Platelet Estimate Decreased L Platelet Morphology Normal Anisocytosis 1+ Sodium Level 142 mEQ/L (135-145) Potassium Level 3.7 mEQ/L (3.4-4.9) Chloride Level 96 mEQ/L (98-107) L Carbon Dioxide Level 34 mEQ/L (20-30) H Anion Gap 12 (5-15) Blood Urea Nitrogen 28 mg/dL (7-23) H Creatinine 1.2 mg/dL (0.5-0.9) H Estimat Glomerular Filtration Rate mL/min (>60) Glucose Level 153 mg/dL (74-106) H Calcium Level 8.7 mg/dL (8.6-10.2) Magnesium Level 1.6 mg/dL (1.7-2.5) L Objective NECK: Positive JVD. LUNGS: Decreased breath sounds. CHEST: Defibrillator in the left subclavian intact CARDIOVASCULAR: Regular S1 and S2 with no gallop or murmur. ABDOMEN: Soft. EXTREMITIES: 3+ pitting edema and cellulitis and wrapped. HANSEL KEENE Aug 13, 2016 16:08
[2016-08-13] MEDS: Xarelto 15mg tab ORAL SCH (16:39)
[2016-08-13 20:00] VITALS: BP 90/58
[2016-08-13] MEDS ORDERED: D5NS 1000ml IV ONE (23:31)
[2016-08-13] MEDS ORDERED: Tubing IV Secondary IV ONE (23:31)
[2016-08-14 12:18] LABS: ALPHA TOCOPHEROL 10.2 mg/L (6.5-21.5); VITAMIN D 25-OH TOTAL 12 ng/mL (.)
--- NOTE | 2016-08-15 09:15 | Discharge Summary ---
Discharge Summary Hospital Course Date of Admission August 08, 2016 at 12:47 Date of Discharge Aug 13, 2016 at 23:32 Admitting Diagnosis SOB HPI Marisa Ricardo is a 71 year old female who was admitted on August 08, 2016 at 12: 47 for Shortness Of Breath Hospital Course dc summary #[id number] Discharge Medications New Medications: Amoxicillin/Potassium Clav 875-125* (Augmentin 875-125 Tablet*) 1 Each Tablet 1 TAB ORAL TWICE A DAY for 10 Days, TAB Furosemide* (Lasix*) 40 Mg Tablet 40 MG ORAL DAILY for 30 Days, TAB Trimethoprim/Sulfamethoxazole (Bactrim 400-80 mg Tablet) 1 Each Tablet 1 TAB ORAL EVERY 12 HOURS for 10 Days, TAB Carvedilol (Coreg) 3.125 Mg Tablet 3.125 MG ORAL EVERY 12 HOURS for 30 Days, TAB Quetiapine Fumarate* (Seroquel*) 25 Mg Tablet 50 MG ORAL BEDTIME for 30 Days, TAB Rivaroxaban (Xarelto) 15 Mg Tablet 15 MG ORAL QPM for 30 Days, TAB Continued Medications: Digoxin* (Digoxin*) 0.125 Mg/2.5 Ml Solution Unknown Dose ORAL DAILY, ML 0 Refills Spironolactone (Aldactone) 25 Mg Tablet 25 MG ORAL DAILY, TAB Discharge Condition Upon Discharge: stable Discharge Disposition Patient was discharged to SNF/Subacute Facility(03) Discharge Diagnoses: Yair (Vancraissa)Zoraida NP Aug 15, 2016 09:15
--- NOTE | 2016-08-16 02:45 | Discharge Summary 2 SIG ---
DATE OF ADMISSION: 08/08/2016 DATE OF DISCHARGE: 08/13/2016 REASON FOR ADMISSION: The patient is a 71-year-old female with history of congestive heart failure, AICD, cardiomyopathy, and psychiatric disorder, who presented to emergency room with shortness of breath and leg swelling. EKG revealed sinus tachycardia. No acute ischemic changes. Troponin was negative. ProBNP was 18,803. Chest x-ray revealed interstitial edema consistent with congestive heart failure and cardiomegaly. Digoxin level was subtherapeutic. Afebrile. Digoxin was given. Creatinine was elevated at 1.3. CK 208. ADMITTING DIAGNOSES: 1. Congestive heart failure exacerbation. 2. Dyspnea. 3. Acute renal failure. HOSPITAL STAY: The patient was admitted to telemetry floor. Pulmonology consult and cardiology consult were requested along with psychiatric consult and ID consult. Echocardiogram revealed ejection fraction of 20% to 25% and right ventricular systolic pressure of 41 consistent with mild pulmonary hypertension. Medical management of systolic heart failure was done with beta-shruthi, digoxin, low dose of DASIA, and diuretic; Lasix and Aldactone. Renal parameters, electrolytes, and intake and output were closely monitored. Potassium was replaced as needed. Bridge Operator and senior planning manager both followed the patient. The patient is status post re-interrogation of AICD with normal functioning. Anticoagulation was provided with Xarelto. The patient has history of paroxysmal atrial fibrillation and DVT, status post IVC filter. CT of the head revealed no acute intracranial pathology, but consistent with chronic age-related changes. Venous duplex revealed patent deep venous system bilaterally. Lipid panel revealed elevated LDL with normal total cholesterol and normal triglyceride. ProBNP was down to 3929 prior to discharge. Troponin x3 were negative. EKG shows no acute ischemic changes. The patient was ruled out for acute IL. Neurologist had seen the patient due to mild cognitive impairment. He wanted to rule out bipolar disorder versus vascular dementia. B12 and folate level was stable. CT of the brain revealed no acute intracranial pathology, but was consistent with chronic age-related changes. Laboratory work, vitamin D was low. The patient will be started on the vitamin D replacement as an outpatient. Noted elevated TSH. Outpatient full thyroid function panel to be repeated. Creatinine range was down to 1.2 likely element of chronic renal insufficiency as well. Psychiatrist had seen and evaluated the patient and diagnosed her with bipolar disorder with cognitive impairment. Started the patient on Seroquel. ID followed. The patient was on antibiotic. Wound culture contaminant as per ID. Wound culture revealed Serratia and enterococci and urine culture revealed mixed gram-positive organism. Per ID, wound culture colonized and arterial Dopplers revealed no evidence of significant stenosis or occlusion. Urine culture also colonized. HiIV negative. The patient was leukopenic. The patient was on antibiotics, IV Zosyn empiric while in the hospital and per ID recommendation changed to Bactrim and Augmentin to complete the course. Tax Agent had seen the patient for onychomycosis and callus of the right foot, status post I and D on the bedside for blister, debridement of the toenails bilaterally and right callus wound care as per anesthetic assistant's recommendation to be continued at the custodial facility. Wound care was provided as per anesthetic assistant's recommendation and to be continued at custodial facility. The patient's areas of blisters were treated with Betadine and legs were wrapped with continued at the custodial facility. The patient was stable for discharge. Initial tachycardia resolved. Electrolytes were stable. Creatinine was down to 1.2. Magnesium was 1.6 and was replaced. ProBNP was down to 3929 as mentioned above. WBC was still 2.7 and platelets 89,000. Need to watch the counts at the facility. DISCHARGE DIAGNOSES: Include: 1. Acute on chronic systolic heart failure. 2. Dilated cardiomyopathy. 3. Paroxysmal atrial fibrillation. 4. Coronary artery disease. 5. Implantable cardioverter-defibrillator. 6. History of deep vein thrombosis, status post inferior vena cava filter. 7. Mild pulmonary hypertension. 8. Cellulitis of bilateral lower extremity. 9. Peripheral edema. 10. Bipolar disorder with cognitive impairment. 11. Possible vascular dementia. 12. Leukopenia. 13. Thrombocytopenia. 14. Onychomycosis. 15. Callus, right foot. 16. Hypokalemia. 17. Electrolyte imbalance with hypokalemia and hypomagnesemia. 18. Acute respiratory failure. DISCHARGE MEDICATIONS: See medication reconciliation list. The patient is to continue p.o. antibiotics to complete the course as recommended by ID. DISCHARGE INSTRUCTIONS: The patient was discharged to custodial facility. FOLLOWUP: Follow up with medical doctor at the facility. Hallie Tiwari M.D. I have been assigned to dictate discharge summary on this account and I was not involved in the patient's management. Zoraida Mazariegos N.P. (vanchtein) DR: SCOTTY JOB#: [id number] CC:
== END 2016-08-13 23:32 | DRG 291 ==
LOC: EMR 12:05 → 2E 12:47 → EDBEDREQ 13:01
PROC: 0H9NXZZ Drainage of Left Foot Skin, External Approach (ICD-10-PCS; principal; 2016-08-09)
PROC: 0H9MXZZ Drainage of Right Foot Skin, External Approach (ICD-10-PCS; principal; 2016-08-09)
DX: I50.23 Acute on chronic systolic (congestive) heart failure (principal); J96.00 Acute respiratory failure, unspecified whether with hypoxia or hypercapnia; L03.115 Cellulitis of right lower limb; I27.2 Other secondary pulmonary hypertension; D69.6 Thrombocytopenia, unspecified; I48.0 Paroxysmal atrial fibrillation; I42.0 Dilated cardiomyopathy; L03.116 Cellulitis of left lower limb; B35.1 Tinea unguium; Z86.74 Personal history of sudden cardiac arrest; D75.1 Secondary polycythemia; Z95.810 Presence of automatic (implantable) cardiac defibrillator; I25.10 Atherosclerotic heart disease of native coronary artery without angina pectoris; Z79.01 Long term (current) use of anticoagulants; F41.9 Anxiety disorder, unspecified; Z87.891 Personal history of nicotine dependence; Z86.72 Personal history of thrombophlebitis; F31.9 Bipolar disorder, unspecified; J44.9 Chronic obstructive pulmonary disease, unspecified; G31.84 Mild cognitive impairment of uncertain or unknown etiology; F20.9 Schizophrenia, unspecified; Z86.718 Personal history of other venous thrombosis and embolism; E87.6 Hypokalemia; F01.50 Vascular dementia, unspecified severity, without behavioral disturbance, psychotic disturbance, mood disturbance, and anxiety; S90.822A Blister (nonthermal), left foot, initial encounter; S90.821A Blister (nonthermal), right foot, initial encounter; X58.XXXA Exposure to other specified factors, initial encounter; L84 Corns and callosities; E83.42 Hypomagnesemia
CPT/HCPCS: 36415; 70450; 71010; 80048; 80053; 80061; 80162; 81001; 82306; 82550; 82553; 82607; 83735; 83880; 84443; 84446; 84484; 85007; 85025; 85610; 85730; 86140; 86703; 87070; 87086; 87181; 87205; 93005; 93306; 93925; 93970; 94664; J8499